=== PATIENT | female | born 1995 | race Caucasian/White ===

== ENCOUNTER 2020-04-07 | Outpatient (REF) | payer OTHER, BC, SELFPAY ==
[2020-04-09 12:21] LABS: BV Int Neg Control Negative (Negative); BV Int Pos Control Positive (Positive)
== END 2020-04-07 00:01 | disposition home or self-care (01) ==
LOC: HO.LNP
PROVIDERS: Visit Provider Hospitalist
DX: N89.8 Other specified noninflammatory disorders of vagina (principal)
CPT/HCPCS: 87480; 87510; 87660

== ENCOUNTER 2020-04-07 12:52 | Outpatient (REF) | payer OTHER, BC, SELFPAY ==
[2020-04-08 04:02] LABS: CT PCR NOT DETECTED (Not Detect.); NG PCR NOT DETECTED (Not Detect.)
[2020-04-08 20:25] LABS: Syphilis Screen Nonreactive (Nonreactive)
[2020-04-11 08:37] LABS: HBS Num1 4.81 mIU/mL (0-7.99); HBc Num1 0.14 S/CO (0.00-0.79); HBsAGNum1 0.19 S/CO (0.00-0.99); HIV AB/AG Nonreactive (Nonreactive); Hepatitis B Core Antibody Nonreactive (Nonreactive); Hepatitis B Surface Antigen Negative (Negative); ~Hepatitis B Surface Antibody NONREACTIVE (Nonreactive)
[2020-04-11 09:52] LABS: ~HepC Num1 0.11 S/CO (0.00-0.79); ~Hepatitis C Antibody Nonreactive (Nonreactive)
[2020-04-13 05:44] LABS: Hepatitis A Antibody IgM 0.18 Index (0-0.79); ~Hepatitis A Antibody IgM Nonreactive (Nonreactive)
== END 2020-04-07 12:53 | disposition home or self-care (01) ==
LOC: HO.HMGCLDS 12:52
PROVIDERS: PCP Nurse Practitioner Family; Visit Provider Hospitalist
DX: Z11.3 Encounter for screening for infections with a predominantly sexual mode of transmission (principal); Z11.4 Encounter for screening for human immunodeficiency virus [HIV]; Z01.84 Encounter for antibody response examination; N89.8 Other specified noninflammatory disorders of vagina
CPT/HCPCS: 86704; 86706; 86709; 86780; 86803; 87255; 87340; 87389; 87491; 87591

== ENCOUNTER 2020-04-08 15:19 | Outpatient (REF) | payer OTHER, BC, SELFPAY | END 2020-04-08 15:20 | disposition home or self-care (01) | LOC: HO.LNP 15:19 | PROVIDERS: Visit Provider Hospitalist | DX: G47.33 Obstructive sleep apnea (adult) (pediatric) (principal) ==

== ENCOUNTER → 2020-04-25 15:38 | Outpatient (BNVA) | payer OTHER, BC, SELFPAY | PROVIDERS: Visit Provider Advanced Practice Midwife | DX: Z76.89 Persons encountering health services in other specified circumstances (principal) ==

== ENCOUNTER 2020-04-25 18:07 | Outpatient (REF) | payer OTHER, BC, SELFPAY ==
[2020-04-26 11:27] LABS: BV Int Neg Control Negative (Negative); BV Int Pos Control Positive (Positive)
== END 2020-04-25 18:08 | disposition home or self-care (01) ==
LOC: HO.LNP 18:07
PROVIDERS: Visit Provider Advanced Practice Midwife
DX: N89.8 Other specified noninflammatory disorders of vagina (principal)
CPT/HCPCS: 87480; 87510; 87660

== ENCOUNTER 2020-06-16 10:28 | Outpatient (REF) | payer OTHER, SELFPAY ==
[2020-06-16 11:17] LABS: MANUAL DIFF FLAG NO
[2020-06-16 11:22] LABS: Basophils Percent Auto 0.5 % (0-2); Eosinophils Absolute Auto 0.1 X10*3/uL (0.0-0.4); Eosinophils Percent Auto 1.2 % (0-4); Hematocrit 46.2 % (37-47); Hemoglobin 15.8 g/dl (12.0-16.0); Imm Gran Abs Auto 0.03 X10*3/uL (0.00-0.03); Imm Gran Pct Auto 0.4 % (0.0-0.4); Lymphocytes Absolute Auto 1.7 X10*3/uL (1.2-4.9); Lymphocytes Percent Auto 21.2 % (20-40); Mean Corpuscular HGB Conc 34.2 g/dl (31.0-35.0); Mean Corpuscular Volume 99.4 fL (80-98); Mean Platelet Volume 10.8 fL (9.4-12.3); Monocytes Absolute Auto 0.6 X10*3/uL (0.1-1.2); Neutrophils Absolute Auto 5.7 X10*3/uL (2.0-8.3); Neutrophils Percent Auto 69.7 % (45-73); Platelet Count 297 X10*3/uL (160-400); Red Blood Count 4.65 X10*6/uL (4.20-5.50); Red Cell Distribution Width 11.9 % (11.0-16.0); White Blood Count 8.2 X10*3/uL (4.8-10.8)
[2020-06-16 11:46] LABS: Alanine Aminotransferase 29 U/L (0-31); Albumin Level 4.8 g/dL (3.5-5.0); Alkaline Phosphatase 73 U/L (39-117); Anion Gap 12 (12-20); Aspartate Amino Transferase 24 U/L (5-31); Bilirubin Total 0.5 mg/dL (0.0-1.0); Blood Urea Nitrogen 12 mg/dL (9-16); Calcium 9.3 mg/dL (8.4-10.2); Carbon Dioxide 31 mmol/L (22-29); Chloride 106 mmol/L (96-108); Cholesterol 165 mg/dL; Estimated Glomerular Filt Rate > 60; Glucose Fasting 94 mg/dL (60-99); HDL Cholesterol 65 mg/dL; LDL Cholesterol Calculated 83 mg/dl; Potassium 4.5 mmol/l (3.3-5.1); Sodium 144 mmol/L (135-145); Total Protein 7.9 g/dL (6.5-8.0); Triglycerides 89 mg/dL
[2020-06-16 12:07] LABS: TSH reflex Free T4 0.75 mIU/mL (0.32-4.0)
== END 2020-06-16 10:29 | disposition home or self-care (01) ==
LOC: HO.HMGCLDS 10:28
PROVIDERS: PCP Nurse Practitioner Family; Visit Provider Nurse Practitioner Family
DX: Z00.00 Encounter for general adult medical examination without abnormal findings (principal)
CPT/HCPCS: 36415; 80053; 80061; 84443; 85025

== ENCOUNTER → 2020-06-29 14:25 | Outpatient (BNVA) | payer OTHER, BC, SELFPAY | PROVIDERS: PCP Nurse Practitioner Family; Visit Provider Physician Assistant | DX: Z76.89 Persons encountering health services in other specified circumstances (principal) ==

== ENCOUNTER 2020-07-05 11:03 | Outpatient (REF) | payer OTHER, BC, SELFPAY ==
--- NOTE | 2020-07-05 11:07 | US_ITS ---
EXAMINATION: US ABDOMEN COMPLETE CLINICAL INFORMATION: Bilious vomiting. COMPARISON: None TECHNIQUE: Real-time imaging of the abdominal viscera. FINDINGS: PANCREAS: Normal. ABDOMINAL AORTA: The proximal, mid, and distal segments are normal in caliber. INFERIOR VENA CAVA: Visualized portions are normal. LIVER: The liver is normal in size. The liver contour is normal. Liver echotexture is slightly increased probably representing fatty infiltration. No focal hepatic lesion. There is no intrahepatic biliary duct dilatation seen. GALLBLADDER: Normal. The gallbladder is physiologically distended without evidence of stones, sludge, polyps, wall thickening or pericholecystic fluid. COMMON BILE DUCT: Normal in caliber measuring 0.3 cm in diameter. RIGHT KIDNEY: Normal. No hydronephrosis. No renal calculi or focal parenchymal lesions. The kidney measures 9.9 cm in maximum dimension. LEFT KIDNEY: Normal. No hydronephrosis. No renal calculi or focal parenchymal lesions. The kidney measures 10.1 cm in maximum dimension. SPLEEN: Normal. The spleen measures 11.1 cm in maximum dimension. FREE FLUID: None. US/US abdomen complete IMPRESSION: Slightly echogenic liver probably presenting fatty infiltration otherwise unremarkable exam.
== END 2020-07-05 11:04 | disposition home or self-care (01) ==
LOC: HO.US 11:03
PROVIDERS: PCP Nurse Practitioner Family; Visit Provider Physician Assistant
DX: R11.14 Bilious vomiting (principal)
CPT/HCPCS: 76700

== ENCOUNTER 2020-07-07 11:11 | Outpatient (REF) | payer OTHER, BC, SELFPAY ==
[2020-07-07 17:44] LABS: Glucose Urine UA NEG (NEG); Leukocyte Esterase Urine NEG (NEG); Nitrite Urine POS (NEG); PH 6.5 (5.0-8.0); Specific Gravity - Urine 1.025 (1.005-1.025); Urine Blood NEG (NEG); Urine Ketones 15 MG/DL (NEG); Urine Protein NEG (NEG-TRACE)
[2020-07-07 17:46] LABS: Appearance Urine CLEAR; Color Urine YELLOW
[2020-07-07 18:36] LABS: Bacteria Urine TRACE /LPF; RBC Urine 0-2 /HPF (0); Squamous Epithelial Cell Urine 2+ /LPF; WBC Urine 0 /HPF (0-4)
[2020-07-08 12:53] LABS: C. trachomatis RNA TMA NOT DETECTED (NOT DETECTED); N. gonorrhoeae RNA TMA NOT DETECTED (NOT DETECTED)
[2020-07-08 13:13] LABS: BV Int Neg Control Negative (Negative); BV Int Pos Control Positive (Positive)
== END 2020-07-07 11:12 | disposition home or self-care (01) ==
LOC: HO.LAB 11:11
PROVIDERS: Visit Provider Advanced Practice Midwife
DX: R30.0 Dysuria (principal); Z20.2 Contact with and (suspected) exposure to infections with a predominantly sexual mode of transmission
CPT/HCPCS: 36415; 81001; 87086; 87480; 87491; 87510; 87591; 87660

== ENCOUNTER 2020-08-30 08:54 | Outpatient (REF) | payer OTHER, BC, SELFPAY | END 2020-08-30 08:55 | disposition home or self-care (01) | LOC: HO.LAB 08:54 | PROVIDERS: Visit Provider Nurse Practitioner Family | DX: R30.0 Dysuria (principal) | CPT/HCPCS: 87086 ==

== ENCOUNTER 2020-09-21 12:41 | Outpatient (REF) | payer OTHER, BC, SELFPAY | END 2020-09-21 12:42 | disposition home or self-care (01) | LOC: HO.HMGCLNP 12:41 | PROVIDERS: Physician Assistant; Visit Provider Advanced Practice Midwife | DX: A04.8 Other specified bacterial intestinal infections (principal) | CPT/HCPCS: 87338 ==

== ENCOUNTER 2020-09-22 08:01 | Outpatient (REF) | payer OTHER, BC, SELFPAY ==
[2020-09-23 09:19] LABS: CT PCR NOT DETECTED (Not Detect.); NG PCR NOT DETECTED (Not Detect.)
[2020-09-23 10:15] LABS: BV Int Neg Control Negative (Negative); BV Int Pos Control Positive (Positive)
== END 2020-09-22 08:02 | disposition home or self-care (01) ==
LOC: HO.LAB 08:01
PROVIDERS: PCP Nurse Practitioner Family; Visit Provider Obstetrics & Gynecology
DX: N73.0 Acute parametritis and pelvic cellulitis (principal); R31.29 Other microscopic hematuria
CPT/HCPCS: 87086; 87480; 87491; 87510; 87591; 87660; 96372

== ENCOUNTER 2020-09-27 16:02 | Outpatient (REF) | payer OTHER, BC, SELFPAY ==
--- NOTE | ~2020-09-27 | US_ITS ---
EXAMINATION: US PELVIS, COMPLETE CLINICAL INFORMATION: Acute parametritis and pelvic cellulitis; the last menstrual period was on 09/10/2020. COMPARISON: Pelvic ultrasound dated 07/29/2018. TECHNIQUE: Transabdominal and transvaginal imaging was performed. FINDINGS: The uterus is of normal size and echogenicity measuring 5.9 x 2.8 x 4.9 cm. There is an arcuate configuration of the uterus. The uterus is anteverted and anteflexed. A regular homogeneous endometrium is identified measuring 0.5 cm. A Nabothian cyst is seen within the cervix Both ovaries are of normal size and echogenicity. The right ovary measures 3.6 x 2.0 x 1.7 cm for a volume of 6.4 mL. The left ovary measures 3.6 x 2.0 x 3.2 cm for a volume of 12.1 mL. Multiple small physiologic follicles are seen within the ovaries. Within the right ovary, there is a 1.0 x 0.8 x 1.1 cm cyst with septation, versus adjacent follicles. This shows no mural nodularity or associated color Doppler flow. There is mild free fluid in the cul-de-sac and bilateral adnexa regions. No adnexal mass is seen. US/US transvaginal IMPRESSION: 1. A 1.1 cm in maximal diameter right ovarian septated cyst versus adjacent follicles is noted. 2. A Nabothian cyst is seen within the cervix. 3. There is a small amount free fluid within the cul-de-sac and in the bilateral adnexal regions.
--- NOTE | ~2020-09-27 | US_ITS ---
EXAMINATION: US PELVIS, COMPLETE CLINICAL INFORMATION: Acute parametritis and pelvic cellulitis; the last menstrual period was on 09/10/2020. COMPARISON: Pelvic ultrasound dated 07/29/2018. TECHNIQUE: Transabdominal and transvaginal imaging was performed. FINDINGS: The uterus is of normal size and echogenicity measuring 5.9 x 2.8 x 4.9 cm. There is an arcuate configuration of the uterus. The uterus is anteverted and anteflexed. A regular homogeneous endometrium is identified measuring 0.5 cm. A Nabothian cyst is seen within the cervix Both ovaries are of normal size and echogenicity. The right ovary measures 3.6 x 2.0 x 1.7 cm for a volume of 6.4 mL. The left ovary measures 3.6 x 2.0 x 3.2 cm for a volume of 12.1 mL. Multiple small physiologic follicles are seen within the ovaries. Within the right ovary, there is a 1.0 x 0.8 x 1.1 cm cyst with septation, versus adjacent follicles. This shows no mural nodularity or associated color Doppler flow. There is mild free fluid in the cul-de-sac and bilateral adnexa regions. No adnexal mass is seen. US/US pelvic complete IMPRESSION: 1. A 1.1 cm in maximal diameter right ovarian septated cyst versus adjacent follicles is noted. 2. A Nabothian cyst is seen within the cervix. 3. There is a small amount free fluid within the cul-de-sac and in the bilateral adnexal regions.
== END 2020-09-27 16:03 | disposition home or self-care (01) ==
LOC: HO.US 16:02
PROVIDERS: Visit Provider Obstetrics & Gynecology
DX: N73.0 Acute parametritis and pelvic cellulitis (principal)
CPT/HCPCS: 76830; 76856

== ENCOUNTER 2020-09-29 08:02 | Outpatient (REF) | payer OTHER, BC, SELFPAY ==
[2020-09-30 09:43] LABS: CT PCR NOT DETECTED (Not Detect.); NG PCR NOT DETECTED (Not Detect.)
[2020-10-06 11:02] LABS: HPV 16 RNA NOT DETECTED (NOT DETECTED); HPV mRNA E6/E7 rflx Detected (Not Detected)
== END 2020-09-29 08:03 | disposition home or self-care (01) ==
LOC: HO.LAB 08:02
PROVIDERS: PCP Nurse Practitioner Family; Visit Provider Obstetrics & Gynecology
DX: Z01.411 Encounter for gynecological examination (general) (routine) with abnormal findings (principal); Z11.51 Encounter for screening for human papillomavirus (HPV); R31.29 Other microscopic hematuria; N83.201 Unspecified ovarian cyst, right side
CPT/HCPCS: 87491; 87591; 87624; 87625; 88141; 88142

== ENCOUNTER → 2020-10-25 10:10 | Outpatient (BNVA) | payer OTHER, BC, SELFPAY | PROVIDERS: PCP Nurse Practitioner Family; Visit Provider Internal Medicine Gastroenterology ==

== ENCOUNTER 2020-10-27 15:47 | Outpatient (REF) | payer OTHER, BC, SELFPAY ==
[2020-10-27 16:49] LABS: Glucose Urine UA NEG (NEG); Leukocyte Esterase Urine NEG (NEG); Nitrite Urine NEG (NEG); Specific Gravity - Urine 1.025 (1.005-1.025); Urine Blood NEG (NEG); Urine Ketones NEG (NEG); Urine Protein NEG (NEG-TRACE)
[2020-10-27 16:54] LABS: Appearance Urine CLEAR; Color Urine YELLOW
[2020-10-27 17:28] LABS: Ferritin 77 ng/mL (10-122); TSH reflex Free T4 0.85 uIU/mL (0.32-4.0); Vitamin D 25-OH Total 31.9 ng/mL (>30)
[2020-10-27 17:40] LABS: Folate 10.4 ng/mL (> or = 4.0); Vitamin B12 374 pg/mL (200-900)
[2020-10-27 17:49] LABS: Erythrocyte Sedimentation Rate 3 MM/HR (0-20)
[2020-10-28 08:49] LABS: HBS Num1 3.73 mIU/mL (0-7.99); HBc Num1 0.09 S/CO (0.00-0.79); Hepatitis B Core Antibody Nonreactive (Nonreactive); ~Hepatitis B Surface Antibody NONREACTIVE (Nonreactive)
[2020-10-28 09:13] LABS: HBsAGNum1 0.22 S/CO (0.00-0.99); Hepatitis A Antibody IgM 0.14 Index (0-0.79); Hepatitis B Surface Antigen Negative (Negative); ~HepC Num1 0.09 S/CO (0.00-0.79); ~Hepatitis A Antibody IgM Nonreactive (Nonreactive); ~Hepatitis C Antibody Nonreactive (Nonreactive)
[2020-10-28 10:10] LABS: CT PCR NOT DETECTED (Not Detect.); NG PCR NOT DETECTED (Not Detect.)
[2020-10-28 11:57] LABS: IgA 206 mg/dL (47-310); IgG 1109 mg/dL (600-1640); IgM 68 mg/dL (50-300)
[2020-10-28 14:21] LABS: Transglutaminase Ab IgG 2 U/mL; Transglutaminase IgA 1 U/mL
[2020-10-28 23:52] LABS: Gliadin Deamidated IgA Ab 5 Units; Gliadin Deamidated IgG Ab 4 Units
[2020-10-29 05:36] LABS: CA-125 7 U/mL (<35)
[2020-10-30 15:52] LABS: Zinc 77 mcg/dL (60-130)
[2020-11-01 06:27] LABS: Vitamin B6 19.3 ng/mL (2.1-21.7)
[2020-11-01 11:12] LABS: Vitamin C 1.1 mg/dL (0.3-2.7)
[2020-11-01 12:51] LABS: Vitamin A 51 mcg/dL (38-98)
[2020-11-01 18:32] LABS: Alpha-Tocopherol 9.5 mg/L (5.7-19.9); Beta-Gamma Tocopherol 1.6 mg/L (<=4.3)
[2020-11-01 20:31] LABS: Histamine Plasma 6.7 ng/mL (< OR = 1.8)
[2020-11-02 06:36] LABS: Metanephrine, Free 70 pg/mL (<=57); Normetanephrines, Free 134 pg/mL (<=148); Total Metanephrine, Free 204 pg/mL (<=205)
[2020-11-02 09:21] LABS: Nicotinamide <20 ng/mL; Vit B3 - Nicotinic Acid <20 ng/mL
[2020-11-02 17:57] LABS: Vitamin K1 295 pg/mL (130-1500)
[2020-11-03 09:11] LABS: Vitamin B5 (Pantothenic Acid) 62 ng/mL (<275)
== END 2020-10-27 15:48 | disposition home or self-care (01) ==
LOC: HO.LAB 15:47
PROVIDERS: Advanced Practice Midwife; Absent Provider Obstetrics & Gynecology; PCP Nurse Practitioner Family; Visit Provider Internal Medicine Gastroenterology
DX: N83.299 Other ovarian cyst, unspecified side (principal); G89.29 Other chronic pain; R10.33 Periumbilical pain; N39.0 Urinary tract infection, site not specified; R11.14 Bilious vomiting; R30.0 Dysuria; Z20.2 Contact with and (suspected) exposure to infections with a predominantly sexual mode of transmission
CPT/HCPCS: 36415; 81003; 82180; 82306; 82607; 82728; 82746; 82784; 82785; 83088; 83516; 83520; 83835; 84207; 84443; 84446; 84590; 84591; 84597; 84630; 85652; 86003; 86304; 86704; 86706; 86709; 86803; 87086; 87340; 87491; 87591

== ENCOUNTER 2020-11-14 10:14 | Day surgery (SDC) | payer BC, OTHER, SELFPAY ==
--- NOTE | 2020-11-09 10:53 | HO.ANESPROP2 ---
HPI - Anesthesia Eval Consult details Narrative: 24yo F for Upper Endoscopy PMFSH Active Problems Active Problems: All Active Problems (Updated 10/25/20 @ 10:48 by Toni Carr MD) Complex ovarian cyst (Acute) Well woman exam (Acute) Microscopic hematuria (Acute) PID (acute pelvic inflammatory disease) (Acute) UTI (urinary tract infection) (Acute) control counseling (Acute) Dysuria (Acute) Potential exposure to STD (Acute) Physical exam (Acute) Vomiting bile (Acute) Chronic back pain (Acute) Vaginal irritation (Acute) Bacterial vaginosis (Acute) Vaginal discharge (Acute) Past Medical History Medical History Chronic back pain Concern about STD in female without diagnosis Family History Family History Father History of back surgery Mother Depression History of back surgery Brother No problems noted. Brother No problems noted. Sister No problems noted. Surgical History Surgical History No pertinent past surgical history Social History Social History Alcohol intake: current Alcohol intake frequency: a few times a week Smoking Status: Current some day smoker Gender identity: female Meds Allergies Allergy/AdvReac Type Severity Reaction Status Date / Time No Known Allergies Allergy Verified 11/09/20 08:06 Exam Exam Date and Time: November 09, 2020 1053 Assessment and Plan Assessment Anesthesia Assessment: Chart Reviewed
[2020-11-14 10:22] VITALS: BP 111/80; PULSE 60; RESP 14; TEMP 36.4; O2SAT 97; BMI 26.6
[2020-11-14 10:25] LABS: UPreg QC Valid YES; Urine Pregnancy NEGATIVE (NEGATIVE)
--- NOTE | 2020-11-14 10:33 | P.HPSUR_ITS ---
Pre-Procedural Eval Section B Chief Complaint: Vomiting Bile Relevant Family History (Specify if Yes): No Relevant Social History: None Present Medications: see Short Stay Collaborative assessment Medical History: Significant History (Chronic back pain, ovarian cyst) History of Previous Operations: No relevant previous surgery Allergies: Allergies Allergy/AdvReac Type Severity Reaction Status Date / Time No Known Allergies Allergy Verified 11/09/20 08:06 Review of Systems Sugical H&P ROS: Negative: Constitution, Cardiovascular, Respiratory, Neurological, Psychiatric, Hem-Onc, Allergic/Immunologic, Gastrointestinal, Genitourinary, Musculoskeletal, Integumentary, Endocrine and E yes/Ears/Nose/Throat Exam Surgical H&P Exam: Normal: HEENT, Normal: Heart, Normal: Lungs, Normal: Extremities, Normal: Abdomen and Normal: Neurological and Significant Findings: Skin (dermographism) Plan Diagnosis/Plan: Unchanged I have reviewed the history and physical and performed a pertinent physical examination on my patient. No changes have occurred unless specified.
--- NOTE | 2020-11-14 10:43 | P.BOP_ITS ---
Brief Operative Note Date of Service: 11/14/20 Pre-op diagnosis: elevated histamine, nausea and vomiting Post-op diagnosis: same Procedure: see op note Surgeon: Toni Carr MD Anesthesia: MAC Was an Network Security Consultant used for this Procedure?: No Estimated blood loss (mL): 0 Condition: stable Disposition: PACU
--- NOTE | 2020-11-14 10:43 | W.PM.OPN ---
Operative Note Operative Note Date of Service: 11/14/20 Narrative: Procedure Description: EGD FLEXIBLE TRANSORAL UPPER GASTROINTESTINAL ENDOSCOPY UPPER ENDOSCOPY Consent: Indications for the procedure and potential complications of bleeding, perforation, reaction to medications and missed diagnosis were discussed with the patient and informed consent was obtained. Instrument: Olympus GIF H 190 J mid size upper endoscope Monitoring: Vital signs and clinical assessment, continuous EKG monitoring, Pulse oximetry, Carbon Dioxide monitoring and blood pressure monitoring were done throughout the procedure. Procedure: The patient was placed in the left lateral decubitis position and pre-procedure medications were administered and a bite block was placed. The endoscope was inserted into the mouth and advanced under direct vision to the third part of duodenum. A careful inspection was made as the upper endoscope was withdrawn including a retroflexed examination of the proximal stomach; Findings and interventions are described below. Findings: Larynx:normal Esophagus: GE junction at 37 cm, diaphragm hiatus at 37 cm, mild esophagitis noted at GEJ, bx taken from here and distal esophagus in separate jars. Stomach: Normal. Biopsies were obtained. Grade 2 flap valve on retroflexed examination of the cardia. Duodenum: Normal bulb and descending duodenum, bx taken Intervention: Biopsies as noted above Impression/Findings: esophagitis PLAN: trial of antihistamine therapy incl famotidine given hx of elevated histamine and see if any improvement in sx
[2020-11-14 10:58] VITALS: BP 108/67; PULSE 64; RESP 16; TEMP 36.4; O2SAT 97
[2020-11-14 11:12] VITALS: BP 107/63; PULSE 69; RESP 16; TEMP 36.6; O2SAT 98
--- NOTE | 2020-11-14 12:44 | HO.POSTANES ---
Post Anesthesia Evaluation Post Anesthesia Evaluation Vital Signs: Vital Signs Temp Pulse Resp BP Pulse Ox 11/14/20 11:12 97.8 F 69 16 107/63 98 11/14/20 10:58 97.5 F 64 16 108/67 97 11/14/20 10:22 97.6 F 60 14 111/80 97 Anesthesia: Monitored Mental Status: Awake Pain Control: Satisfactory Nausea/Vomiting: None Hydration: Adequate Anesthesia-Related Issues: No Anes. Related Issues
[2020-11-18 23:56] LABS: Coproporphyrin I, 24Hr 29.8 mcg/24 h (7.1-48.7); Coproporphyrin III, 24Hr 75.7 mcg/24 h (11.0-148.5); Heptacarboxylporphyrin, 24U 1.2 mcg/24 h (< OR = 3.3); Pentacarboxylporphrin, 24U 1.1 mcg/24 h (< OR = 4.6); Total Volume, Porphyrins 24Hr 1325 mL; Uroporphyrin I, 24 Hr 11.6 mcg/24 h (4.1-22.4); Uroporphyrin III, 24Hr 2.6 mcg/24 h (0.7-7.4)
[2020-11-19 08:21] LABS: Hydroindolacetic Acid,5- 0.5 mg/24 h (<=6.0)
[2020-11-20 23:56] LABS: Metanephrine, Free 24U 196 mcg/24 h (25-222); Normetanephrine, Free 24U 317 mcg/24 h (40-412); Total Metanephrine, Free 24U 513 mcg/24 h (94-604); Total Volume 24U 1325 mL
[2020-11-21 16:27] LABS: Cortisol Free, 24 Hr Urine 23.1 mcg/24 h (4.0-50.0); Creatinine, 24 Hr Urine 1.91 g/24 h (0.50-2.15); Total Volume 1325 mL; Total Volume, 24 Hr Urine 1325 mL
[2020-12-05 09:22] LABS: Creatinine 24Hr Urine 2067 mg/24 h (603 - 1783); N-Methylhistamine, 24Hr Urine 154 mcg/g Cr (30-200); Total Volume 1325 mL
== END 2020-11-14 11:56 | disposition home or self-care (01) ==
PROVIDERS: Nurse Practitioner; PCP Nurse Practitioner Family; Visit Provider Internal Medicine Gastroenterology
PROC: 0DJ08ZZ Inspection of Upper Intestinal Tract, Via Natural or Artificial Opening Endoscopic (ICD-10-PCS; CPT 43235; principal; 2020-11-14 11:00)
DX: R11.14 Bilious vomiting (principal); K20.80 Other esophagitis without bleeding; K44.9 Diaphragmatic hernia without obstruction or gangrene; Z79.899 Other long term (current) drug therapy
CPT/HCPCS: 43239; 81025; 81050; 82530; 82542; 83497; 83835; 84120; 88305; 88341; 88342

== ENCOUNTER 2020-11-24 07:27 | Outpatient (REF) | payer OTHER, BC, SELFPAY ==
[2020-11-24 07:50] LABS: MANUAL DIFF FLAG NO
[2020-11-24 07:53] LABS: Basophils Percent Auto 0.6 % (0-2); Eosinophils Absolute Auto 0.2 X10*3/uL (0.0-0.4); Eosinophils Percent Auto 4.4 % (0-4); Hematocrit 40.8 % (37-47); Hemoglobin 14.3 g/dl (12.0-16.0); Imm Gran Abs Auto 0.01 X10*3/uL (0.00-0.03); Imm Gran Pct Auto 0.2 % (0.0-0.4); Lymphocytes Absolute Auto 1.8 X10*3/uL (1.2-4.9); Mean Corpuscular Hemoglobin 33.7 pg (27.0-33.0); Mean Corpuscular Volume 96.2 fL (80-98); Monocytes Absolute Auto 0.7 X10*3/uL (0.1-1.2); Monocytes Percent Auto 13.3 % (2-11); Neutrophils Absolute Auto 2.5 X10*3/uL (2.0-8.3); Neutrophils Percent Auto 47.5 % (45-73); Platelet Count 205 X10*3/uL (160-400); Red Blood Count 4.24 X10*6/uL (4.20-5.50); Red Cell Distribution Width 11.7 % (11.0-16.0); White Blood Count 5.2 X10*3/uL (4.8-10.8)
[2020-11-28 11:17] LABS: Metanephrine, Free 46 pg/mL (<=57); Normetanephrines, Free 86 pg/mL (<=148); Total Metanephrine, Free 132 pg/mL (<=205)
[2020-11-29 23:36] LABS: Histamine Plasma 4.9 ng/mL (< OR = 1.8)
== END 2020-11-24 07:28 | disposition home or self-care (01) ==
LOC: HO.LAB 07:27
PROVIDERS: PCP Nurse Practitioner Family; Visit Provider Internal Medicine Gastroenterology
DX: R11.14 Bilious vomiting (principal); R00.2 Palpitations
CPT/HCPCS: 36415; 83088; 83835; 85025; 86003

== ENCOUNTER → 2020-11-29 11:20 | Outpatient (BNVA) | payer OTHER, BC, SELFPAY | PROVIDERS: PCP Nurse Practitioner Family; Referring Provider Nurse Practitioner Family; Visit Provider Internal Medicine Gastroenterology ==

== ENCOUNTER 2020-12-15 15:33 | Outpatient (REF) | payer OTHER, BC, SELFPAY ==
--- NOTE | ~2020-12-15 | US_ITS ---
EXAMINATION: ULTRASOUND PELVIS COMPLETE CLINICAL INFORMATION: Ovarian cyst COMPARISON: Ultrasound pelvis 09/27/2020 TECHNIQUE: Transabdominal and transvaginal imaging of pelvis is performed. FINDINGS: The uterus is anteverted and anteflexed measuring 6.1 cm in length, 2.7 cm in AP and 4.6 cm in transverse dimension. Endometrial thickness is 0.25 cm. The uterus is homogeneous in echotexture. No focal lesion seen. The right ovary measures 3.6 x 1.6 x 2.0 cm and volume 5.9 mL. It appears unremarkable. Previously it measures 3.4 x 2.2 x 2.8 cm. Left ovary measures 2.8 x 1.9 x 3.2 cm and volume 8.9 mL. It appears unremarkable. Previously measured 3.1 x 2.1 x 2.6 cm. There is no free fluid in the cul-de-sac. US/US transvaginal IMPRESSION: Unremarkable uterus and ovaries.
--- NOTE | ~2020-12-15 | US_ITS ---
EXAMINATION: ULTRASOUND PELVIS COMPLETE CLINICAL INFORMATION: Ovarian cyst COMPARISON: Ultrasound pelvis 09/27/2020 TECHNIQUE: Transabdominal and transvaginal imaging of pelvis is performed. FINDINGS: The uterus is anteverted and anteflexed measuring 6.1 cm in length, 2.7 cm in AP and 4.6 cm in transverse dimension. Endometrial thickness is 0.25 cm. The uterus is homogeneous in echotexture. No focal lesion seen. The right ovary measures 3.6 x 1.6 x 2.0 cm and volume 5.9 mL. It appears unremarkable. Previously it measures 3.4 x 2.2 x 2.8 cm. Left ovary measures 2.8 x 1.9 x 3.2 cm and volume 8.9 mL. It appears unremarkable. Previously measured 3.1 x 2.1 x 2.6 cm. There is no free fluid in the cul-de-sac. US/US pelvic complete IMPRESSION: Unremarkable uterus and ovaries.
== END 2020-12-15 15:34 | disposition home or self-care (01) ==
LOC: HO.HMGCX 15:33
PROVIDERS: PCP Nurse Practitioner Family; Visit Provider Obstetrics & Gynecology
DX: N83.299 Other ovarian cyst, unspecified side (principal)
CPT/HCPCS: 76830; 76856

== ENCOUNTER 2021-01-18 09:20 | Outpatient (REF) | payer OTHER, BC, SELFPAY ==
[2021-01-19 02:39] LABS: CT PCR NOT DETECTED (Not Detect.); NG PCR NOT DETECTED (Not Detect.)
[2021-01-19 13:00] LABS: BV Int Neg Control Negative (Negative); BV Int Pos Control Positive (Positive)
== END 2021-01-18 09:21 | disposition home or self-care (01) ==
LOC: HO.LAB 09:20
PROVIDERS: PCP Nurse Practitioner Family; Visit Provider Obstetrics & Gynecology
DX: Z11.3 Encounter for screening for infections with a predominantly sexual mode of transmission (principal); N76.0 Acute vaginitis; B96.89 Other specified bacterial agents as the cause of diseases classified elsewhere; N83.299 Other ovarian cyst, unspecified side
CPT/HCPCS: 87480; 87491; 87510; 87591; 87660

== ENCOUNTER 2021-02-07 10:40 | Outpatient (REF) | payer OTHER, BC, SELFPAY ==
[2021-02-08 08:16] LABS: HBsAGNum1 0.21 S/CO (0.00-0.99); HIV AB/AG Nonreactive (Nonreactive); HIV Num 1 0.08 S/CO (0.00-0.99); Hepatitis B Surface Antigen Negative (Negative); ~HepC Num1 0.17 S/CO (0.00-0.79); ~Hepatitis C Antibody Nonreactive (Nonreactive)
[2021-02-08 09:15] LABS: Syphilis Screen Nonreactive (Nonreactive)
== END 2021-02-07 10:41 | disposition home or self-care (01) ==
LOC: HO.HMGCLDS 10:40
PROVIDERS: PCP Nurse Practitioner Family; Visit Provider Obstetrics & Gynecology
DX: Z01.84 Encounter for antibody response examination (principal); Z11.4 Encounter for screening for human immunodeficiency virus [HIV]; Z11.3 Encounter for screening for infections with a predominantly sexual mode of transmission; Z11.59 Encounter for screening for other viral diseases
CPT/HCPCS: 36415; 86780; 86803; 87340; 87389

== ENCOUNTER 2021-02-17 11:26 | Outpatient (REF) | payer OTHER, BC, SELFPAY ==
[2021-02-17 14:00] LABS: CT PCR NOT DETECTED (Not Detect.); NG PCR NOT DETECTED (Not Detect.)
[2021-02-19 11:58] LABS: BV Int Neg Control Negative (Negative); BV Int Pos Control Positive (Positive)
== END 2021-02-17 11:27 | disposition home or self-care (01) ==
LOC: HO.LNP 11:26
PROVIDERS: Visit Provider Hospitalist
DX: R30.0 Dysuria (principal); Z11.3 Encounter for screening for infections with a predominantly sexual mode of transmission
CPT/HCPCS: 87086; 87480; 87491; 87510; 87591; 87660

== ENCOUNTER → 2021-03-31 07:54 | Outpatient (REF) | payer OTHER, BC, SELFPAY ==
--- NOTE | ~2021-03-31 | NM_ITS ---
EXAMINATION: RADIONUCLIDE SOLID FOOD GASTRIC EMPTYING 4-HOUR STUDY CLINICAL INFORMATION: Early satiety. COMPARISON: The previous study dated 07/16/2018 is available for comparison. TECHNIQUE: A standard meal consisting of 4 oz of Egg Beaters brand equivalent tagged with 1.0 mCi Tc-99m Sulfur Colloid, 8 oz water and 2 slices of toast with jelly was administered orally to the patient. Images were obtained using a dual head gamma camera in the anterior and posterior projections over of the stomach immediately post ingestion and at hourly intervals up to 4 hours post ingestion. The anterior and posterior counts at each time interval were averaged using the geometric mean and expressed as percentage of the immediate post ingestion counts. FINDINGS: There is good visualization of activity in the stomach immediately post ingestion. As the study progresses, there is good clearance of activity from the stomach and visualization of progressively increasing small bowel activity. By the end of the study, there is almost no retention noted in the stomach. Retention in the stomach at each time interval was: 1 hour 51% (normal 37%-90%) 2 hours 23% (normal 30%-60%) 3 hours 15% 4 hours 9% (normal 0%-10%) Compared to the previous study dated 07/16/2018, gastric retention at all time intervals is slightly lower than on the previous study which was mildly abnormal showing 16% retention at 4 hours. NM/NM gastric emptying study IMPRESSION: Normal 4-hour solid food gastric emptying study.
== END ==
LOC: HO.NUCMED 07:54
PROVIDERS: PCP Nurse Practitioner Family; Visit Provider Internal Medicine Gastroenterology
DX: R68.81 Early satiety (principal)
CPT/HCPCS: 78264; A9541

== ENCOUNTER 2021-05-05 08:01 | Outpatient (REF) | payer OTHER, BC, SELFPAY ==
[2021-05-05 11:35] LABS: MANUAL DIFF FLAG NO
[2021-05-05 11:48] LABS: Basophils Percent Auto 0.5 % (0-2); Eosinophils Absolute Auto 0.2 X10*3/uL (0.0-0.4); Hematocrit 43.1 % (37.0-47.0); Hemoglobin 14.9 g/dl (12.0-16.0); Imm Gran Abs Auto 0.02 X10*3/uL (0.00-0.03); Imm Gran Pct Auto 0.3 % (0.0-0.4); Lymphocytes Absolute Auto 1.5 X10*3/uL (1.2-4.9); Lymphocytes Percent Auto 24.9 % (20-40); Mean Corpuscular HGB Conc 34.6 g/dl (31.0-35.0); Mean Corpuscular Hemoglobin 34.1 pg (27.0-33.0); Mean Corpuscular Volume 98.6 fL (80.0-98.0); Mean Platelet Volume 11.8 fL (9.4-12.3); Monocytes Absolute Auto 0.5 X10*3/uL (0.1-1.2); Monocytes Percent Auto 8.2 % (2-11); Neutrophils Absolute Auto 3.9 x10*3/uL (2.0-8.3); Neutrophils Percent Auto 63.1 % (45-73); Platelet Count 217 X10*3/uL (160-400); Red Blood Count 4.37 X10*6/uL (4.20-5.50); Red Cell Distribution Width 12.2 % (11.0-16.0); White Blood Count 6.1 X10*3/uL (4.8-10.8)
[2021-05-05 11:49] LABS: INTERNATIONAL NORM RATIO 0.9 (0.9-1.1); Prothrombin Time 10.1 SEC (9.9-13.0)
[2021-05-05 11:52] LABS: Partial Thromboplastin Time 36.1 SEC (24.1-38.0)
[2021-05-05 12:10] LABS: Alanine Aminotransferase 17 U/L (0-31); Albumin Level 4.2 g/dL (3.5-5.0); Alkaline Phosphatase 70 U/L (39-117); Anion Gap 10 (12-20); Aspartate Amino Transferase 18 U/L (5-31); Bilirubin Total 0.7 mg/dL (0.0-1.0); Blood Urea Nitrogen 14 mg/dL (9-16); Carbon Dioxide 27 mmol/L (22-29); Chloride 106 mmol/L (96-108); Estimated Glomerular Filt Rate > 60; Glucose Random 91 mg/dL (60-115); Potassium 4.1 mmol/L (3.3-5.1); Sodium 139 mmol/L (135-145); Total Protein 6.9 g/dL (6.5-8.0)
[2021-05-05 12:26] LABS: Erythrocyte Sedimentation Rate 2 MM/HR (0-20)
[2021-05-05 14:34] LABS: CT PCR NOT DETECTED (Not Detect.); NG PCR NOT DETECTED (Not Detect.)
[2021-05-06 13:06] LABS: Lyme Abs Screen <0.90 index
[2021-05-08 17:22] LABS: Anti Nuclear Antibody Screen NEGATIVE (NEGATIVE)
== END 2021-05-05 08:02 | disposition home or self-care (01) ==
LOC: HO.HMGCLDS 08:01
PROVIDERS: PCP Nurse Practitioner Family; Visit Provider Advanced Practice Midwife
DX: Z11.3 Encounter for screening for infections with a predominantly sexual mode of transmission (principal); R23.8 Other skin changes
CPT/HCPCS: 36415; 80053; 85025; 85610; 85652; 85730; 86038; 86039; 86617; 86618; 87491; 87591

== ENCOUNTER 2021-05-08 16:32 | Outpatient (REF) | payer OTHER, BC, SELFPAY ==
[2021-05-12 18:46] LABS: Histamine Plasma 3.2 ng/mL (< OR = 1.8)
== END 2021-05-08 16:33 | disposition home or self-care (01) ==
LOC: HO.LAB 16:32
PROVIDERS: PCP Nurse Practitioner Family; Visit Provider Nurse Practitioner Family
DX: R23.8 Other skin changes (principal)
CPT/HCPCS: 36415; 83088

== ENCOUNTER 2021-06-07 16:35 | Outpatient (REF) | payer OTHER, BC, SELFPAY | END 2021-06-07 16:36 | disposition home or self-care (01) | LOC: HO.LNP 16:35 | PROVIDERS: Visit Provider Physician Assistant Medical | DX: Z20.822 Contact with and (suspected) exposure to COVID-19 (principal); J06.9 Acute upper respiratory infection, unspecified | CPT/HCPCS: 87071; U0003; U0005 ==

== ENCOUNTER 2021-08-03 17:11 | Outpatient (REF) | payer OTHER, BC, SELFPAY ==
[2021-08-03 17:31] LABS: MANUAL DIFF FLAG NO
[2021-08-03 17:49] LABS: Basophils Percent Auto 0.3 % (0-2); Eosinophils Absolute Auto 0.1 X10*3/uL (0.0-0.4); Eosinophils Percent Auto 0.7 % (0-4); Hematocrit 40.6 % (37.0-47.0); Hemoglobin 14.3 g/dl (12.0-16.0); Imm Gran Abs Auto 0.04 X10*3/uL (0.00-0.03); Imm Gran Pct Auto 0.4 % (0.0-0.4); Lymphocytes Absolute Auto 3.1 X10*3/uL (1.2-4.9); Lymphocytes Percent Auto 30.1 % (20-40); Mean Corpuscular HGB Conc 35.2 g/dl (31.0-35.0); Mean Corpuscular Volume 96.7 fL (80.0-98.0); Mean Platelet Volume 10.9 fL (9.4-12.3); Monocytes Absolute Auto 0.8 X10*3/uL (0.1-1.2); Monocytes Percent Auto 8.2 % (2-11); Neutrophils Absolute Auto 6.1 x10*3/uL (2.0-8.3); Neutrophils Percent Auto 60.3 % (45-73); Platelet Count 231 X10*3/uL (160-400); Red Cell Distribution Width 11.9 % (11.0-16.0); White Blood Count 10.1 X10*3/uL (4.8-10.8)
[2021-08-03 18:06] LABS: Appearance Urine CLEAR; Color Urine YELLOW; Glucose Urine UA NEG (NEG); Leukocyte Esterase Urine NEG (NEG); Nitrite Urine NEG (NEG); PH 7.5 (5.0-8.0); Specific Gravity - Urine 1.015 (1.005-1.025); Urine Blood NEG (NEG); Urine Ketones NEG (NEG); Urine Protein NEG (NEG-TRACE)
[2021-08-03 18:17] LABS: Alanine Aminotransferase 14 U/L (0-31); Albumin Level 4.8 g/dL (3.5-5.0); Alkaline Phosphatase 67 U/L (39-117); Anion Gap 11 (12-20); Aspartate Amino Transferase 18 U/L (5-31); Bilirubin Total 0.8 mg/dL (0.0-1.0); Blood Urea Nitrogen 13 mg/dL (9-16); Calcium 10.1 mg/dL (8.4-10.2); Carbon Dioxide 29 mmol/L (22-29); Chloride 105 mmol/L (96-108); Estimated Glomerular Filt Rate > 60; Glucose Fasting 95 mg/dL (60-99); Potassium 3.6 mmol/L (3.3-5.1); Sodium 141 mmol/L (135-145); Total Protein 7.9 g/dL (6.5-8.0)
[2021-08-03 18:38] LABS: TSH reflex Free T4 1.05 uIU/mL (0.32-4.0)
[2021-08-04 08:16] LABS: HIV AB/AG Nonreactive (Nonreactive); HIV Num 1 0.12 S/CO (0.00-0.99)
[2021-08-04 08:40] LABS: Syphilis Screen Nonreactive (Nonreactive)
[2021-08-04 09:15] LABS: CT PCR NOT DETECTED (Not Detect.); NG PCR NOT DETECTED (Not Detect.)
== END 2021-08-03 17:12 | disposition home or self-care (01) ==
LOC: HO.LAB 17:11
PROVIDERS: PCP Nurse Practitioner Family; Visit Provider Nurse Practitioner Family
DX: Z00.00 Encounter for general adult medical examination without abnormal findings (principal); Z11.3 Encounter for screening for infections with a predominantly sexual mode of transmission; N89.8 Other specified noninflammatory disorders of vagina
CPT/HCPCS: 80053; 81003; 84443; 85025; 86780; 87389; 87491; 87591

== ENCOUNTER 2021-08-09 07:37 | Outpatient (REF) | payer OTHER, BC, SELFPAY ==
[2021-08-09 08:13] LABS: Cholesterol 147 mg/dL; HDL Cholesterol 57 mg/dL; LDL Cholesterol Calculated 83 mg/dl; Triglycerides 37 mg/dL
== END 2021-08-09 07:38 | disposition home or self-care (01) ==
LOC: HO.LAB 07:37
PROVIDERS: PCP Nurse Practitioner Family; Visit Provider Nurse Practitioner Family
DX: Z00.00 Encounter for general adult medical examination without abnormal findings (principal)
CPT/HCPCS: 36415; 80061

== ENCOUNTER 2022-07-04 09:12 | Outpatient (REF) | payer OTHER, SELFPAY ==
[2022-07-04 13:03] LABS: Influenza A PCR NEGATIVE (Negative); Influenza B PCR NEGATIVE (Negative); Resp Syncy Virus RNA Qual PCR NEGATIVE (Negative); SARS COV2 PCR INHOUSE POSITIVE (Negative)
== END 2022-07-04 09:13 | disposition home or self-care (01) ==
LOC: HO.LAB 09:12
PROVIDERS: Visit Provider Internal Medicine
DX: Z20.822 Contact with and (suspected) exposure to COVID-19 (principal); R09.89 Other specified symptoms and signs involving the circulatory and respiratory systems
CPT/HCPCS: 0241U

== ENCOUNTER 2022-08-28 13:36 | Emergency (ER) | payer OTHER, SELFPAY ==
[2022-08-28 13:41] VITALS: BP 125/84; PULSE 115; O2SAT 97
[2022-08-28 13:51] VITALS: BP 140/74; PULSE 99; RESP 16; TEMP 36.6; O2SAT 100; BMI 21.6
--- NOTE | 2022-08-28 14:18 | ED.GENADULT ---
HPI - General Adult General Chief complaint: ETOH/Substance Use Stated complaint: etoh Time Seen by Provider: 08/28/22 14:07 Source: patient, family and EMS Mode of arrival: EMS Limitations: no limitations History of Present Illness HPI narrative: 26 yo female with history of anxiety presents to the ER after being found sleeping in her car. Per patient and her mother the patient was sleeping in her car and a bystander found her and they called EMS. Patient reports last night she when out for drinks with her friends and she also had several drinks a continued alcohol today. She also smoked marijuana. She denies any additional substance use. Patient reports she is currently going through a break-up from a partner and this has caused her to have lots of anxiety and depression. No suicidal thoughts. Patient denies any injury or trauma and has no physical complaints Related Data Previous Rx's Medication Instructions Recorded valacyclovir 1 gram tablet 1,000 mg PO Q12H 10 days #20 tabs 09/27/21 ibuprofen 800 mg tablet 800 mg PO Q8H PRN pain 15 days #45 07/04/22 tabs hydroxyzine HCl 25 mg tablet 25 mg PO BEDTIME PRN 07/10/22 anxiety/insomnia 30 days #30 tabs Allergies Allergy/AdvReac Type Severity Reaction Status Date / Time No Known Allergies Allergy Verified 07/04/22 08:51 Review of Systems Review of Systems: Yes all other systems are reviewed and are negative Constitutional: Constitutional: Reports no additional constitutional complaints, Denies body ache(s), Denies chills, Denies fever(s), Denies headache(s) and Denies weakness Eyes: Eyes: Reports no additional eye complaints and Denies change in vision ENT: Reports system reviewed and no additional complaints, except as documented, Denies dizziness, Denies headache(s), Denies nasal congestion, Denies nasal discharge and Denies neck pain Cardiovascular: Cardiovascular: Reports no additional cardiovascular complaints, Denies chest pain, Denies leg edema and Denies dyspnea Respiratory: Respiratory: Reports no additional respiratory complaints, Denies cough and Denies dyspnea Gastrointestinal: Gastrointestinal: Reports no additional gastrointestinal complaints, Denies abdominal pain, Denies diarrhea, Denies nausea and Denies vomiting Genitourinary: Genitourinary: Reports no additional female genitourinary complaints and Denies urinary incontinence Musculoskeletal: Musculoskeletal: Reports no additional musculoskeletal complaints, Denies back pain, Denies arthralgias, Denies joint swelling, Denies neck pain, Denies numbness and Denies tingling Integumentary/Breasts: Skin/Breast: Reports system reviewed and no additional complaints, except as docu and Denies rash Neurologic: Reports system reviewed and no additional complaints, except as documented, Denies dizziness, Denies headache(s), Denies numbness, Denies tingling and Denies weakness PMFSH Past Medical History Attestation statement: The following information was validated with the patient. Source: old records reviewed and nursing notes reviewed Medical History Chronic back pain Concern about STD in female without diagnosis Surgical History H/O esophagogastroduodenoscopy No pertinent past surgical history Family History Family History Father History of back surgery Mother Depression History of back surgery Brother No problems noted. Brother No problems noted. Sister No problems noted. Social History Social History Housing: House Alcohol intake: current Alcohol intake frequency: a few times a week Patient Tobacco Use Status: Never used Tobacco e-Cigarette/Vaping Use: Never Used Advance Directives: Yes Advance Directives Information Provided: Yes Advance Directives on File: No Current occupational status: employed Gender identity: Female Physical Exam ED Vital Signs: Vital Signs - 24 hr 08/28/22 13:51 Temperature 97.9 F Pulse Rate 99 Respiratory Rate 16 Blood Pressure 140/74 H Pulse Oximetry 100 Oxygen Delivery Method Room Air BMI result Body Mass Index 21.6 Const Other: +crying General: alert and anxious Orientation/consciousness: patient oriented x3 Limitations: no limitations Neuro Other: +anxious General: patient oriented x3 and moves all extremities Cognition (Neuro): normal cognition Gait exam (Neuro): Normal gait present Motor exam (neuro): 5/5 motor strength present throughout Sensory Exam: Normal double simultaneous stimulation for sensation Medical Decision Making Medical Decision Making MDM Narrative: 26-year-old female here feeling anxious, tearful states she drank alcohol and smoked marijuana and then fell asleep in her car. Patient denies physical complaints. No injury or trauma. States feeling anxious secondary to recent break-up with boyfriend. No SI/HI. Mom at bedside and concerned patient may have additional substances on board. I offered drug/alcohol testing to the patient. Initially she agreed and then both mom and patient decided they did not want this. Patient A&OX4. Ambulating with steady gait. Tolerating PO. She did meet with CARE team and was provided with outpatient resources. Differential Diagnosis Differential Diagnoses: The differential diagnosis associated with the presentation includes Poly substance use Adjustment disorder Anxiety Consult Healthcare Provider Management of the patient was discussed with: Behavioral Health Provider Patient met with care team [place]-she was provided with outpatient resources. Discharge Plan Discharge Clinical Impression: Adjustment disorder, Anxiety, Alcohol use Patient Disposition: Home, Self-Care Instructions: Anxiety (ED) Additional Instructions: Follow-up with outpatient resources DO no drink alcohol and drive Prescriptions: No Action valacyclovir 1 gram tablet 1,000 mg PO Q12H 10 Days Qty: 20 3RF ibuprofen 800 mg tablet 800 mg PO Q8H PRN (Reason: pain) 15 Days Qty: 45 0RF hydroxyzine HCl 25 mg tablet 25 mg PO BEDTIME PRN (Reason: anxiety/insomnia) 30 Days Qty: 30 1RF Interventions: [place]-Suicide Risk Severity Scale Last Done: 08/28/22 14:58 Discharge Date/Time: 08/28/22 15:30
--- NOTE | 2022-08-28 14:42 | PC.NURSE ---
pts mother at the bedside. pt remains tearful, pt speaking with care team
--- NOTE | 2022-08-28 15:02 | MHC.CARE ---
CARE Team responded to consult request to speak with patient here with anxiety. She was sitting in a wheelchair, mom seated next to her and present for interview, patient was tearful, anxious and labile, difficult to follow in her description of the problem. 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 Mother said this is a much more extreme version of her daughter's anxiety. Patient reported nausea and vomiting every morning and a weight loss of over 30 lbs in the last year, no medical findings to indicate she has a serious issue but she is still worried. She declined offer to stay for evaluation and treatment recommendations, mother felt comfortable without a formal assessment. Both denied any history of suicidal threats, gestures or attempts. Patient agreed therapy might be helpful and information about the new [facility] community programs, CARE Team will contact [facility] to reach out to patient directly to clarify her needs. Patient was encouraged to utilize the EAP services through her employer and general information about that process was given to patient. Per mother, they live close by and will return if any other medical or psychiatric concerns come up.
== END 2022-08-28 15:30 | disposition home or self-care (01) ==
PROVIDERS: Emergency Provider Emergency Medicine Emergency Medical Services; PCP Nurse Practitioner Family
DX: F43.22 Adjustment disorder with anxiety (principal); F10.90 Alcohol use, unspecified, uncomplicated; Y90.9 Presence of alcohol in blood, level not specified; Z79.899 Other long term (current) drug therapy
CPT/HCPCS: 99283

== ENCOUNTER 2023-01-07 10:55 | Outpatient (AMB) | payer OTHER, SELFPAY ==
--- NOTE | 2023-01-07 10:56 | MHC.PC.OV ---
Vital Signs 01/07/23 10:57 Height 5 ft 2 in Weight 136 lb BMI 24.9 BP 110/72 Blood Pressure Location Rt brachial Position Sitting Pulse 83 Pulse Source Pulse Oximeter Pulse Oximetry (%) 97 Oxygen Delivery Method Room Air Intake Visit Reasons: PE Allergies No Known Allergies Allergy (Verified 01/07/23 10:58) Tobacco use date assessed: 01/07/23 Dental Screening Dental Screen Date: 01/07/23 Did you have a dental visit in the last 12 months?: No Did you have a dental problem in the last 6 months where you did not have access to dental care?: No Was dental information given to patient?: Patient has dentist HPI PE HPI Details Pt is here for a PE. Will order labs. 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 Pt is requesting STD testing, though denies any symptoms, will order. Pt would like a BV screen as well because she is prone to this. [facility] Medical History Chronic back pain Concern about STD in female without diagnosis Surgical History H/O esophagogastroduodenoscopy No pertinent past surgical history Family History Father History of back surgery Mother Depression History of back surgery Brother No problems noted. Brother No problems noted. Sister No problems noted. Social History Housing: House Alcohol intake: current Alcohol intake frequency: a few times a week Patient Tobacco Use Status: Never used Tobacco e-Cigarette/Vaping Use: Never Used Current occupational status: employed Gender identity: Female Cognitive needs: No Hearing needs: No Vision needs: No Female Reproductive History Menstrual Age of Menarche: 14 Questionnaire Thrive Questionnaire Date Thrive assessed: 08/03/21 NIMA-7 AMB Questionnaire NIMA-7 Date NIMA - 7 assessed: 08/03/21 Source: Developed by Drs. Bal Yeung, Ernestina Iniguez, Cameron Salgado and colleagues, with an educational lizzy from [employer]. Review of Systems Const Denies chills and Denies fever(s) Eyes Denies blurry vision ENT Denies vertigo, Denies dizziness and Denies sore throat Card Denies chest pain at rest, Denies chest pain with activity, Denies diaphoresis, Denies dyspnea and Denies dyspnea on exertion Resp Denies cough, Denies dyspnea, Denies dyspnea on exertion and Denies wheezing GI Denies abdominal pain, Denies melena, Denies hematochezia, Denies constipation, Denies diarrhea and Denies loose stools Denies hematuria Musc Denies numbness and Denies tingling Skin/Breast Denies lesions Neuro Denies vertigo, Denies dizziness, Denies numbness and Denies tingling Psych Denies anxiety, Denies depression, Denies homicidal ideation, Denies suicidal ideation and Denies other (substance abuse) Aller/Immun Denies wheezing Physical exam (Primary Care) Vital Signs: Last Vital Signs Pulse 83 01/07/23 10:57 BP 110/72 01/07/23 10:57 Pulse Ox 97 01/07/23 10:57 Oxygen Delivery Method Room Air 01/07/23 10:57 BMI result Body Mass Index 24.9 Tobacco/Smoking Status: Tobacco use Status Tobacco use date assessed 01/07/23 01/07/23 11:01 Patient Tobacco Use Status Never used Tobacco 01/07/23 11:01 e-Cigarette/Vaping Use Never Used 01/07/23 11:01 Thrive Assessment: Date of Thrive Assessment Date Thrive assessed 08/03/21 01/07/23 11:01 Const General: cooperative Nutritional Appearance: well nourished Orientation/consciousness: patient oriented x3 HENMT Head: Yes normal to inspection, Yes normocephalic and Yes atraumatic Ears: TM's normal bilaterally Eyes General: appearance normal, both eyes and all related structures Alignment and Position: alignment normal and position normal Neck Neck: Yes normal visual inspection and Yes no lymphadenopathy Thyroid: Thyroid normal Resp Effort & Inspection: normal respiratory effort Auscultation: clear to auscultation bilaterally Cardio Rate: regular rate Rhythm: regular rhythm Heart sounds: S1 normal heart sound present, S2 normal heart sound present and no murmurs GI Palpation (GI): Soft to palpation and nontender Auscultation: normal bowel sounds Skin Rashes: no rashes Neuro General: patient oriented x3, moves all extremities, no focal motor deficits and deep tendon reflexes 2+ bilaterally Romberg Test: Negative Psych Appearance: grossly normal Mental Status: mental status grossly normal Speech and movement: Normal speech and movement present Affect: normal affect Attitude: cooperative Thought process: Normal thought process present Thought content: Normal thought content present Insight: Good insight present (Psych) Judgement: Good judgement present (Psych) Assessment and Plan Assessment & Plan (1) Physical exam: Code(s): Z00.00 - Encounter for general adult medical examination without abnormal findings (2) Screen for STD (sexually transmitted disease): Code(s): Z11.3 - Encounter for screening for infections with a predominantly sexual mode of transmission (3) Bacterial vaginosis: Code(s): N76.0 - Acute vaginitis; B96.89 - Other specified bacterial agents as the cause of diseases classified elsewhere Plan The patient agreed to the use of a medical records library professor for this encounter. Scribed for LIBRADO Christina by Masha Troy medical records library professor, on 01/07/2023 at 11:15 EST. Orders: Orders Comprehensive [place]. Panel Fast Today Z00.00 - Encounter for general adult medical examination without abnormal findings Lipid Panel Today Z00.00 - Encounter for general adult medical examination without abnormal findings TSH reflex Free T4 Today Z00.00 - Encounter for general adult medical examination without abnormal findings Complete Blood Count Auto Diff Today Z00.00 - Encounter for general adult medical examination without abnormal findings UA CC w/rflx Micro + Cult Today Z00.00 - Encounter for general adult medical examination without abnormal findings HIV Ab/Ag Today Z11.3 - Encounter for screening for infections with a predominantly sexual mode of transmission Syphilis Screen Today Z11.3 - Encounter for screening for infections with a predominantly sexual mode of transmission CT NG by PCR Today Z11.3 - Encounter for screening for infections with a predominantly sexual mode of transmission Bacterial Vaginosis Panel Today B96.89 - Other specified bacterial agents as the cause of diseases classified elsewhere, N76.0 - Acute vaginitis Coding Level of Care Code Est Pt Prev Care 18-39y(22306) Diagnoses Physical exam Z00.00 Screen for STD (sexually transmitted disease) Z11.3 Bacterial vaginosis N76.0; B96.89
[2023-01-07 10:57] VITALS: BP 110/72; PULSE 83; O2SAT 97; BMI 24.9
== END 2023-01-07 11:42 | disposition home or self-care (01) ==
PROVIDERS: Visit Provider Nurse Practitioner Family
DX: Z00.00 Encounter for general adult medical examination without abnormal findings (principal); Z11.3 Encounter for screening for infections with a predominantly sexual mode of transmission; N76.0 Acute vaginitis; B96.89 Other specified bacterial agents as the cause of diseases classified elsewhere
CPT/HCPCS: 99395

== ENCOUNTER 2023-01-07 11:29 | Outpatient (REF) | payer OTHER, SELFPAY ==
[2023-01-08 12:08] LABS: BV Int Neg Control Negative (Negative); BV Int Pos Control Positive (Positive)
[2023-01-09 03:48] LABS: HIV AB/AG Nonreactive (Nonreactive); HIV Num 1 0.11 S/CO (0.00-0.99)
== END 2023-01-07 11:30 | disposition home or self-care (01) ==
LOC: HO.HMGCLDS 11:29
PROVIDERS: PCP Nurse Practitioner Family; Visit Provider Nurse Practitioner Family
DX: Z00.00 Encounter for general adult medical examination without abnormal findings (principal); Z11.4 Encounter for screening for human immunodeficiency virus [HIV]; B96.89 Other specified bacterial agents as the cause of diseases classified elsewhere; N76.0 Acute vaginitis; Z20.2 Contact with and (suspected) exposure to infections with a predominantly sexual mode of transmission; Z13.220 Encounter for screening for lipoid disorders; Z13.29 Encounter for screening for other suspected endocrine disorder
CPT/HCPCS: 36415; 80053; 80061; 81003; 84443; 85025; 86780; 87389; 87480; 87510; 87660

== ENCOUNTER 2023-01-07 13:24 | Outpatient (REF) | payer OTHER, SELFPAY | END 2023-01-07 13:25 | disposition home or self-care (01) | LOC: HO.LAB 13:24 | PROVIDERS: Visit Provider Nurse Practitioner Family | DX: Z13.89 Encounter for screening for other disorder (principal) ==

== ENCOUNTER 2023-02-27 15:17 | Outpatient (AMB) | payer OTHER, SELFPAY ==
--- NOTE | 2023-02-27 15:19 | MHC.OFFVIS ---
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 Lsat Instructor Required: No Accompanied by: Self / Same As Patient Allergies No Known Allergies Allergy (Verified 02/27/23 15:24) Medication List - Last Reconciled 02/27/23 by Wilfrid Kruse MD ibuprofen 800 mg PO Q8H PRN 15 days HPI HPI Comments History of Present Illness Details Pleasant 27-year-old female was seen previously in 2018 when she presented for palpitations. She was getting PVCs on Holter monitoring and was using Adderall because she was working night shifts. She has not followed up with us since then. She is now presenting because she has been experiencing some chest pains. She is describing random left-sided chest discomfort which happens off and on. This can last for 5 minutes. This is not exertional. She was exercising previously and was doing 30 minute exercise this is where she was lifting weights and did not have any symptoms before but recently has not been exercising regularly. She smokes weed. She does not have any history of asthma but has chronic cough. She uses ibuprofen up to once a month. [facility] Medical History Chronic back pain Concern about STD in female without diagnosis Surgical History H/O esophagogastroduodenoscopy No pertinent past surgical history Family History Father History of back surgery Mother Depression History of back surgery Brother No problems noted. Brother No problems noted. Sister No problems noted. Social History Housing: House Alcohol intake: current Alcohol intake frequency: a few times a week Patient Tobacco Use Status: Never used Tobacco e-Cigarette/Vaping Use: Never Used Current occupational status: employed Gender identity: Female Cognitive needs: No Hearing needs: No Vision needs: No Female Reproductive History Menstrual Age of Menarche: 14 Review of Systems Const Denies chills, Denies daytime sleepiness, Denies fatigue, Denies fever(s), Denies frequent falls, Denies night sweats, Denies snoring, Denies weakness, Denies weight gain and Denies weight loss Eyes Denies loss of vision ENT Denies dizziness and Denies hearing loss Card Denies chest pain, Denies chest pain with activity, Denies syncope, Denies rapid heart rate, Denies edema, Denies claudication, Denies leg edema, Denies lightheadedness, Denies palpitations, Denies dyspnea, Denies dyspnea on exertion and Denies orthopnea Resp Denies cough, Denies excessive phlegm production, Denies dyspnea, Denies dyspnea on exertion, Denies snoring and Denies wheezing GI Denies abdominal pain, Denies hematochezia, Denies change in bowel habits, Denies change in stool character, Denies heartburn, Denies nausea and Denies vomiting Denies hematuria, Denies urinary frequency and Denies dysuria Musc Denies arthralgias, Denies muscle weakness, Denies numbness and Denies tingling Skin/Breast Denies nail changes and Denies rash Neuro Denies Abnormal speech present, Denies dizziness, Denies syncope, Denies frequent falls, Denies loss of vision, Denies memory loss, Denies numbness, Denies tingling and Denies weakness Psych Denies depression and Denies memory loss Endo Denies fatigue and Denies palpitations Aller/Immun Denies wheezing Physical Exam Vital Signs: Last Vital Signs Pulse 78 02/27/23 15:20 BP 116/82 02/27/23 15:20 BMI result Body Mass Index 24.8 GENERAL APPEARANCE: in no acute distress, pleasant. NECK: no carotid bruit, no jugular venous distention. SKIN: no suspicious lesions, warm and dry. HEART: no murmurs, regular rate and rhythm. LUNGS: clear to auscultation bilaterally. ABDOMEN: soft, nontender. EXTREMITIES: no edema. PERIPHERAL PULSES: equal. NEUROLOGIC: No gross deficits, AAO X 3 Neuro Speech: No Abnormal speech present Office Procedures EKG Details: Sinus rhythm 78 beats per minute, normal ECG, QTC 412 milliseconds. [id number], Complete Assessment & Plan Assessment & Plan (1) Chest pain: Code(s): R07.9 - Chest pain, unspecified Plan 27 year female who is here for assessment of chest pain. She has left-sided chest discomfort which happens randomly. I think this is likely non anginal chest pain. We will check echo to rule out any structural issues. I have advised her to try Prilosec [id number]. She is going to start exercising regularly. I have explained to her that if she gets chest discomfort with exertion consistently then she should call us and we will arrange exercise stress test. Will get a fasting lipid panel on her. Thank you for allowing me to participate in the care of your patient. Please feel free to contact me if you have any questions. Orders: Orders CA echo transthoracic complete Today R07.9 - Chest pain, unspecified Lipid Panel Today R07.9 - Chest pain, unspecified Coding Level of Care Code New Pt Level 4 (37682) Diagnoses Chest pain R07.9 CPT Codes EKG - CPT: 15812-Thbepmlnypppchqcy, Complete ([id number])
[2023-02-27 15:20] VITALS: BP 116/82; PULSE 78; BMI 24.8
== END 2023-02-27 15:45 | disposition home or self-care (01) ==
PROVIDERS: PCP Nurse Practitioner Family; Visit Provider Internal Medicine Cardiovascular Disease
DX: R07.9 Chest pain, unspecified (principal)
CPT/HCPCS: 93010; 99204

== ENCOUNTER → 2023-02-27 15:17 | Outpatient (BNVA) | payer OTHER, SELFPAY | PROVIDERS: PCP Nurse Practitioner Family; Visit Provider Internal Medicine Cardiovascular Disease | DX: R07.9 Chest pain, unspecified (principal); I49.8 Other specified cardiac arrhythmias | CPT/HCPCS: 93005 ==

== ENCOUNTER 2023-02-28 13:24 | Outpatient (REF) | payer OTHER, SELFPAY | END 2023-02-28 13:25 | disposition home or self-care (01) | LOC: HO.LAB 13:24 | PROVIDERS: Visit Provider Advanced Practice Midwife | DX: Z13.89 Encounter for screening for other disorder (principal) ==

== ENCOUNTER 2023-03-01 07:09 | Outpatient (REF) | payer OTHER, SELFPAY ==
[2023-03-01 07:21] LABS: MANUAL DIFF FLAG NO
[2023-03-01 07:42] LABS: Basophils Absolute Auto 0.1 X10*3/uL (0.0-0.2); Basophils Percent Auto 0.6 % (0-2); Eosinophils Absolute Auto 0.2 X10*3/uL (0.0-0.4); Hematocrit 45.3 % (37.0-47.0); Hemoglobin 15.3 g/dl (12.0-16.0); Imm Gran Abs Auto 0.04 X10*3/uL (0.00-0.03); Imm Gran Pct Auto 0.5 % (0.0-0.4); Lymphocytes Absolute Auto 2.3 X10*3/uL (1.2-4.9); Lymphocytes Percent Auto 27.3 % (20-40); Mean Corpuscular HGB Conc 33.8 g/dl (31.0-35.0); Mean Corpuscular Hemoglobin 33.5 pg (27.0-33.0); Mean Corpuscular Volume 99.1 fL (80.0-98.0); Mean Platelet Volume 10.3 fL (9.4-12.3); Monocytes Absolute Auto 0.7 X10*3/uL (0.1-1.2); Monocytes Percent Auto 7.8 % (2-11); Neutrophils Absolute Auto 5.3 x10*3/uL (2.0-8.3); Neutrophils Percent Auto 61.8 % (45-73); Platelet Count 265 X10*3/uL (160-400); Red Blood Count 4.57 X10*6/uL (4.20-5.50); Red Cell Distribution Width 11.9 % (11.0-16.0); White Blood Count 8.6 X10*3/uL (4.8-10.8)
[2023-03-01 08:01] LABS: Cholesterol 162 mg/dL (<200); HDL Cholesterol 65 mg/dL (>40); LDL Cholesterol Calculated 90 mg/dL (<100); Triglycerides 39 mg/dL (<150)
[2023-03-01 08:32] LABS: Syphilis Screen Nonreactive (Nonreactive)
[2023-03-01 08:33] LABS: HBsAGNum1 0.36 S/CO (0.00-0.99); HIV AB/AG Nonreactive (Nonreactive); HIV Num 1 0.09 S/CO (0.00-0.99); Hepatitis B Surface Antigen Negative (Negative); ~HepC Num1 0.86 S/CO (0.00-0.79)
[2023-03-01 11:21] LABS: CT PCR NOT DETECTED (Not Detect.); NG PCR NOT DETECTED (Not Detect.)
[2023-03-01 11:49] LABS: ~HepC Num2 0.12; ~HepC Num3 0.13; ~Hepatitis C Antibody NONREACTIVE (Nonreactive)
== END 2023-03-01 07:10 | disposition home or self-care (01) ==
LOC: HO.LAB 07:09
PROVIDERS: Absent Provider Internal Medicine Cardiovascular Disease; PCP Nurse Practitioner Family; Referring Provider Advanced Practice Midwife; Visit Provider Nurse Practitioner Family
DX: Z11.4 Encounter for screening for human immunodeficiency virus [HIV] (principal); R07.9 Chest pain, unspecified; B96.89 Other specified bacterial agents as the cause of diseases classified elsewhere; D72.829 Elevated white blood cell count, unspecified; N76.0 Acute vaginitis; Z20.2 Contact with and (suspected) exposure to infections with a predominantly sexual mode of transmission
CPT/HCPCS: 0353U; 36415; 80061; 85025; 86780; 86803; 87340; 87389

== ENCOUNTER → 2023-04-10 15:16 | Outpatient (BNV) | payer OTHER, SELFPAY | PROVIDERS: PCP Nurse Practitioner Family; Visit Provider Internal Medicine Cardiovascular Disease | DX: R07.9 Chest pain, unspecified (principal) | CPT/HCPCS: 93306 ==

== ENCOUNTER → 2023-04-10 15:16 | Outpatient (REF) | payer OTHER, SELFPAY ==
--- NOTE | 2023-04-10 15:16 | CA_ITS ---
Transthoracic Echocardiogram Patient (Last, First, Middle): Cassidy Yeung, Gender: Female Date of : 1995 Age: 27 Procedure Date: 04/10/2023 Procedure Type: Transthoracic Echocardiogram Location: OP Height: 157.48 cm Weight: 62.6 kg BSA: 1.63 m2 Heart Rate: bpm BP: 110 / 70 mmHg Wet Pour Mixer: TO Referring MD: Wilfrid Kruse MD Electrical Systems Designer: Wilfrid Kruse MD Symptoms: R07.9 - Chest pain, unspecified Study Quality: Fair Conclusions: - Normal left ventricular size, thickness, systolic function, and wall motion. - Normal right ventricular cavity size and systolic function. Findings Left Ventricle Normal left ventricular size, thickness, systolic function, and wall motion. The visually estimated ejection fraction is between 60-65%. Diastolic function is normal for age. Right Ventricle Normal right ventricular cavity size and systolic function. Atria The left atrium is normal in size. The right atrium is normal in size. Aortic Valve Normal aortic valve structure and function. There is no aortic valve stenosis. There is no aortic valve regurgitation. Mitral Valve Normal mitral valve structure and function. There is no mitral valve regurgitation. There is no mitral valve stenosis. Pulmonic Valve The pulmonic valve is likely normal. Tricuspid Valve Normal tricuspid valve structure and function. There is no tricuspid valve regurgitation. Normal right atrial pressure. There is no evidence of pulmonary hypertension. Great Vessels All visible segments of the aorta are normal in size. The visualized portions of the pulmonary artery and branches are normal. Venous The inferior vena cava is normal in size and collapses greater than 50% with inspiration. Pericardium/Pleural There is no evidence of pericardial effusion. Measurements 2D Linear Measurements IVSd: 0.80 0.6-0.9/0.6-1.0 cm LVIDd: 4.20 3.9-5.3/4.2-5.9 cm LVIDd Index: 2.58 2.4-3.2/2.2-3.1 cm/m2 LVIDs: 3.00 2.0-3.6 cm LVPWd: 0.60 0.7-1.1 cm LA Diam: 2.60 2.7-3.8/3.0-4.0 cm LAIDs Index: 1.60 1.5-2.3 cm/m2 LV Mass: 105.59 67-162/88-224 g LV Mass Index: 64.78 43-95/49-115 g/m2 LVOT Diam: 2.10 3.0+(-)1.3 cm 2D Systolic Function EF 4C: 64.80 >55% EF 2C: 59.20 >55% EF BiP: 62.10 >55% Mitral Valve MV Pk E: 0.92 MV PK A: 0.35 MV Decel Time: 192.00 E/A: 2.60 E'Lateral: 14.10 E'Medial: 9.14 E/E' Med: 10.00 E/E' Lat: 6.50 PHT: 56.00 MVA PHT: 3.93 Decel Wallace: 4.78 Aortic Valve AoV Pk Sherif: 1.15 AoV Mn Sherif: 0.73 AoV VTI: 0.24 AoV Pk Grad: 5.00 Aov Mn Grad: 3.00 ESSENCE Cont.VTI: 2.56 LVOT LVOT Pk Sherif: 0.83 LVOT Mn Sherif: 0.55 LVOT VTI: 0.18 LVOT Pk Grad: 3.00 LVOT Mn Grad: 1.00 LVOT Diam: 2.10 LVOT Area: 3.46 Diastolic Function MV Pk E: 0.92 MV Pk A: 0.35 E/A: 2.60 E'Medial: 9.14 E/E' Med: 10.00 E' Laterial: 14.10 E/E' Lat: 6.50 Right Ventricle TAPSE (mm): 25.40 TVS' Sherif: 12.20 Tricuspid Valve TR Pk Sherif: 1.91 TR Pk Grad: 15.00 RA Press: 8.00 RVSP: 23.00 Great Vessels Aorta Sinus of Valsalva: 3.00 2.0-3.[address] Ridge: 2.70 1.7-3.4 cm Ao Asc: 2.90 2.1-3.4 cm Updated in Other Vendor System with Status of Final Wilfrid Kruse MD electronically signed on 04/11/2023 9:12:36 PM with status of Final
== END ==
LOC: HO.CARD 15:16
PROVIDERS: PCP Nurse Practitioner Family; Visit Provider Internal Medicine Cardiovascular Disease
DX: R07.9 Chest pain, unspecified (principal)
CPT/HCPCS: 93306

== ENCOUNTER 2023-07-16 13:11 | Outpatient (REF) | payer OTHER, SELFPAY ==
[2023-07-17 11:24] LABS: CT PCR NOT DETECTED (Not Detect.); NG PCR NOT DETECTED (Not Detect.)
[2023-07-17 13:24] LABS: BV Int Neg Control Negative (Negative); BV Int Pos Control Positive (Positive)
== END 2023-07-16 13:12 | disposition home or self-care (01) ==
LOC: HO.LNP 13:11
PROVIDERS: PCP Nurse Practitioner Family; Visit Provider Advanced Practice Midwife
DX: Z20.2 Contact with and (suspected) exposure to infections with a predominantly sexual mode of transmission (principal)
CPT/HCPCS: 0353U; 87480; 87510; 87660

== ENCOUNTER 2023-07-16 13:11 | Outpatient (AMB) | payer OTHER, SELFPAY ==
[2023-07-16 13:12] VITALS: BP 120/72; BMI 25.1
--- NOTE | 2023-07-16 13:12 | MHC.OFFVIS ---
Intake Vital Signs 07/16/23 13:12 Height 5 ft 2 in Weight 137 lb BMI 25.1 BP 120/72 Intake Visit Reasons: ? BV Intake Note: BV symptoms also has new partner and would like STD testing Oracle Programmer Analyst Required: No Information Interpreted: non-clinical & clinical Pediatric Assistant: Pediatric Assistant Present (Edmund) Allergies No Known Allergies Allergy (Verified 07/16/23 13:13) Medication List - Last Reconciled 07/16/23 by Kimberly Lindsey CNM ibuprofen 800 mg PO Q8H PRN 15 days valacyclovir 1,000 mg PO BID Is last menstrual period known: Yes Last menstrual period: 07/01/23 Post menopausal: No HPI ? BV HPI Details And is here could she wants to check for STDs and also to see if she is BV she had a new partner and while she normally uses condoms there was 1 time when she did not she has had normal periods since so she has not really worried about . She could not really tell if the discharge had an odor so she just wants to get checked. She is happy with condom use and has used other methods in the past. She thought that she had been getting regular Pap smears and now when she thinks of it she thinks she last had 1 done in [place] and that she has an annual exam there coming up in a couple of months. She thought that her last Pap smear was negative. She often uses boric acid if she thinks she might have some BV and she used it last night. Generally it works for her. [facility] Medical History Concern about STD in female without diagnosis Chronic back pain Surgical History H/O esophagogastroduodenoscopy No pertinent past surgical history Family History Father History of back surgery Mother Depression History of back surgery Brother No problems noted. Brother No problems noted. Sister No problems noted. Social History Housing: House Alcohol intake: current Alcohol intake frequency: a few times a week Patient Tobacco Use Status: Never used Tobacco e-Cigarette/Vaping Use: Never Used Current occupational status: employed Gender identity: Female Cognitive needs: No Hearing needs: No Vision needs: No Female Reproductive History Menstrual Age of Menarche: 14 Duration of menses: 3-5 days Date of last menstrual period: 07/01/23 control method: condoms Total pregnancies: 0 Date of last pap smear: 09/30/20 (+HPV) History of abnormal pap smear: Yes (2017 [facility]) Physical Exam Vital Signs: Last Vital Signs BP 120/72 07/16/23 13:12 BMI result Body Mass Index 25.1 External Female Exam: normal external appearance and normal appearance of the urethra Speculum Exam - Vagina: normal appearance of the vagina and normal vaginal discharge Speculum Exam - Cervix: normal appearance of the cervix and Cervical os closed Results Reviewed Results Reviewed: Previous abnormal Paps and system. Assessment & Plan Assessment & Plan (1) Screen for STD (sexually transmitted disease): Code(s): Z11.3 - Encounter for screening for infections with a predominantly sexual mode of transmission Plan Testing done for gonorrhea chlamydia trichomoniasis Gardnerella and Traci. Her discharge looked up perfectly fine with her clear nulliparous pink cervix. Discussed follow-up of Pap smears. Seems she has been going elsewhere so she just needs to decide where she would like to be seen and choose [address] She thinks that she would like to return here so if she wishes she may make an appointment. I offered to place an order for blood work for STIs in the system that she can get done when she wishes and she may do them at any time. Has and just please visit for outbreak since she has no longer with the partner that she she rare outbreaks, We will call her if there is any positive test results. Orders: Orders HIV Ab/Ag Today Z11.3 - Encounter for screening for infections with a predominantly sexual mode of transmission Hepatitis B Surface Antigen Today Z11.3 - Encounter for screening for infections with a predominantly sexual mode of transmission Hepatitis C Antibody Today Z11.3 - Encounter for screening for infections with a predominantly sexual mode of transmission Syphilis Screen Today Z11.3 - Encounter for screening for infections with a predominantly sexual mode of transmission Coding Level of Care Code Est Pt Level 3 (35205) Diagnoses Screen for STD (sexually transmitted disease) Z11.3
--- OUTSIDE RECORDS SUMMARY | 2023-07-16 13:13 | XMS_ITS | Patient Health Record ---
Author Name Unknown Organization [facility] Address [address] Care Team Providers Care Informatics Coordinator Name Role Phone Hermes Curtis Primary Care Provider Unav ailTwyla Hernandes Unavailable [phone] ALLERGIES No Known Allergies REASON FOR REFERRAL No Information MEDICATIONS Medication SIG (Take, Route, Fr equency, Duration) Notes Start Date End Date Status Physical Therapy . . B/L achilles tendo nitis 2-3x/week Active SOCIAL HISTORY Tobacco Use: Social History Observation Description Date Details (start date - stop date) Never Smoker NA - NA Sex Assigned At : Social History Observation Description Sex Assigned At Unknown Tobacco Use/Smoking Question Answer Notes Are you a: nonsmoker Alcohol Screen Question Answer Notes Did you have a drink contain ing alcohol in the past year? Yes How often did you have 6 or more drinks on one occasion in the past year? Daily or almost daily (4 points) Points 4 Interpretation Positive Tobacco use other than smoking: Question Answer Notes Are you an other tobacco user? 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) VITAL SIGNS Height 5ft 2in in 07/31/2022 Weight 120 lbs 07/31/2022 BMI 21.95 kg/m2 07/31/2022 Encounters Encounter Location Date Provider Diagnosis [facility] [address] [address] 07/31/2022 Twyla Cummings Achilles tendinitis, right leg M76.61 ; Acquired Eloisa's deformity of right heel M92.61 ; Ingrowing nail L60.0 ; Achilles tendinitis of left lower extremity M76.62 ; Eloisa's deformity of left heel M92.62 and Tinea unguium B35.[address] [facility] [address] [address] 07/31/2022 Twyla Cumimngs ASSESSMENTS Encounter Date Diagnosis Assessment Notes Treatment Notes Treatment Clinical Notes 07/31/2022 Achilles tendinitis, right leg (ICD-10 - M76.61) Patient Educated with: HEEL CORD STRETCHES.pdf (HEEL CORD STRETCHES.pdf) Patient Educated with: RICE THERAPY.pdf (RICE THERAPY.pdf) 07/31/2022 Acquired Eolisa's deformity of right heel (ICD-10 - M92.61) 07/31/2022 Ingrowing nail (ICD-10 - L60.0) 07/31/2022 Achilles tendinitis of left lower extremity (ICD-10 - M76.62) 07/31/2022 Eloisa's deformity of left heel (ICD-10 - M92.62) 07/31/2022 Tinea unguium (ICD-10 - B35.1) PLAN OF TREATMENT Pending Test Test Name Order Date X ray : Foot, left 3V 07/31/2022 X ray : Foot, right 3V 07/31/2022 X ray : Foot, right 3V 2021 Insurance Providers Payer Name Payer Address Payer Phone Subscriber Number Group Number Insured Name Patient Relationship to Insured Coverage Start Date Coverage End Date [facility] [address] [place] [id number] Yeung Self - patient is the insured MEDICAL (GENERAL) HISTORY Medical History History ICD Code Back pain Anxiety Surgical History Surgery Date(Month/Year) endoscopy
== END 2023-07-16 13:37 | disposition home or self-care (01) ==
LOC: HO.HWSM 13:11
PROVIDERS: PCP Nurse Practitioner Family; Visit Provider Advanced Practice Midwife
DX: Z11.3 Encounter for screening for infections with a predominantly sexual mode of transmission (principal)
CPT/HCPCS: 99213

== ENCOUNTER 2023-12-23 10:29 | Outpatient (AMB) | payer OTHER, SELFPAY ==
[2023-12-23 11:48] VITALS: BP 120/80; PULSE 86; O2SAT 98; BMI 24.9
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
== END 2023-12-23 12:37 | disposition home or self-care (01) ==
PROVIDERS: PCP Nurse Practitioner Family; Visit Provider Internal Medicine
DX: S46.812A Strain of other muscles, fascia and tendons at shoulder and upper arm level, left arm, initial encounter (principal); M94.0 Chondrocostal junction syndrome [Tietze]
CPT/HCPCS: 99213

== ENCOUNTER 2024-02-28 08:05 | Outpatient (AMB) | payer OTHER, SELFPAY ==
[2024-02-28 08:07] VITALS: BP 122/84; PULSE 78; O2SAT 98; BMI 25.2
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
== END 2024-02-28 08:44 | disposition home or self-care (01) ==
PROVIDERS: PCP Nurse Practitioner Family; Visit Provider Physician Assistant
DX: N30.01 Acute cystitis with hematuria (principal); Z11.3 Encounter for screening for infections with a predominantly sexual mode of transmission
CPT/HCPCS: 81003; 99214

== ENCOUNTER 2024-02-28 08:45 | Outpatient (REF) | payer OTHER, SELFPAY ==
[2024-02-28 14:43] LABS: CT PCR NOT DETECTED (Not Detect.); NG PCR NOT DETECTED (Not Detect.)
== END 2024-02-28 08:46 | disposition home or self-care (01) ==
LOC: HO.LAB 08:45
PROVIDERS: Visit Provider Physician Assistant
DX: Z11.3 Encounter for screening for infections with a predominantly sexual mode of transmission (principal)
CPT/HCPCS: 87491; 87591

== ENCOUNTER 2024-03-13 11:00 | Outpatient (REF) | payer OTHER, SELFPAY ==
[2024-03-17 04:39] LABS: CT PCR NOT DETECTED (Not Detect.); NG PCR NOT DETECTED (Not Detect.)
[2024-03-17 11:23] LABS: Bacterial Vaginosis PCR NEGATIVE (Negative); Candida Group PCR NOT DETECTED (Not Detect); Candida glab krusei PCR NOT DETECTED (Not Detect); Trichomonas vaginalis PCR DETECTED (Not Detect)
== END 2024-03-13 11:01 | disposition home or self-care (01) ==
LOC: HO.LAB 11:00
PROVIDERS: PCP Nurse Practitioner Family; Visit Provider Advanced Practice Midwife
DX: N89.8 Other specified noninflammatory disorders of vagina (principal); Z20.2 Contact with and (suspected) exposure to infections with a predominantly sexual mode of transmission
CPT/HCPCS: 0352U; 87491; 87591

== ENCOUNTER 2024-03-13 11:00 | Outpatient (AMB) | payer OTHER, SELFPAY ==
[2024-03-13 11:14] VITALS: BP 116/62; BMI 25.2
--- NOTE | 2024-03-13 11:14 | MHC.OFFVIS ---
Vital Signs 03/13/24 11:14 Height 5 ft 2 in Weight 138 lb BMI 25.2 BP 116/62 Intake Visit Reasons: Vaginal discharge Balance Sheet Analyst Required: No Information Interpreted: clinical only Allergies No Known Allergies Allergy (Verified 03/13/24 11:16) Medication List - Last Reconciled 03/13/24 by Kimberly Lindsey CNM No Known Home Meds Is last menstrual period known: Yes Last menstrual period: 02/15/24 HPI HPI Vaginal discharge: Details: An unusual sensation 2 weeks ago from her left labia to her buttocks and she went to urgent care and they treated her for UTI and did testing for STIs and she said they told her there was nothing there. She is still paranoid she uses condoms when she has sex she just started with a new partner she would be interested in making sure she does not have any STI at all even though she was careful but she is worried that she would be the 1 in 100 where the condom might break. She has also been constipated. She said she was treated for UTI but did not notice any difference but still just wants to double check on everything she thought she was having a yellow discharge. [facility] Medical History Concern about STD in female without diagnosis Chronic back pain Surgical History H/O esophagogastroduodenoscopy No pertinent past surgical history Family History Father History of back surgery Mother Depression History of back surgery Brother No problems noted. Brother No problems noted. Sister No problems noted. Social History Housing: House Alcohol intake: current Alcohol intake frequency: a few times a week Patient Tobacco Use Status: Never used Tobacco e-Cigarette/Vaping Use: Never Used Current occupational status: employed Gender identity: Female Cognitive needs: No Hearing needs: No Vision needs: No Female Reproductive History Menstrual Age of Menarche: 14 Duration of menses: 3-5 days Date of last menstrual period: 02/15/24 control method: none Total pregnancies: 0 Full term: 0 Physical Exam Vital Signs: Last Vital Signs BP 116/62 03/13/24 11:14 BMI result Body Mass Index 25.2 Other: Normal external exam no lesions seen vagina pink and moist cervix nulliparous pink moist healthy appearing no abnormal discharge appreciated at all cervix is long close thick mobile nontender uterus midposition mobile nontender small adnexa nontender nonenlarged tone with Kegel. External Female Exam: normal external appearance Speculum Exam - Vagina: normal appearance of the vagina and normal vaginal discharge Speculum Exam - Cervix: normal appearance of the cervix Bimanual exam- vagina & uterus: normal bimanual exam, uterine size normal, consistency normal, uterine mobility normal, uterine shape normal and non-tender Bimanual Exam- Adnexa, other: normal adnexae, no masses and No adnexal tenderness Assessment & Plan Assessment & Plan (1) Screen for STD (sexually transmitted disease): Code(s): Z11.3 - Encounter for screening for infections with a predominantly sexual mode of transmission Category: Medical (2) Vaginal discharge: Comment: Nothing abnormal evident today 03/13/2024. Code(s): N89.8 - Other specified noninflammatory disorders of vagina Category: Medical (3) Uses condoms as primary control method: Comment: And for safer sex.... Code(s): Z78.9 - Other specified health status Category: Social Hx Plan Reviewed her symptoms and concerns in great detail. No pathology evident today whatsoever she said she would accept testing for STIs and when I went to place orders it turns out there orders in there from July of 2023 so she will go to the lab sometime at her convenience. Discussed constipation and recommend increased vegetables and increased water she just started using a small stool to help her go to the bathroom as well. Discussed that being careful and concerned about STIs is inherently not a bad thing in that it helps keep her safe and she is thinking outside the box. We will see her for annual exams. Orders: Orders CT NG by PCR Today N89.8 - Other specified noninflammatory disorders of vagina, Z20.2 - Contact with and (suspected) exposure to infections with a predominantly sexual mode of transmission Bacterial Vaginosis Panel Today N89.8 - Other specified noninflammatory disorders of vagina Coding Level of Care Code Est Pt Level 3 (36240) Diagnoses Screen for STD (sexually transmitted disease) Z11.3 Vaginal discharge N89.8 Uses condoms as primary control method Z78.9
== END 2024-03-13 12:24 | disposition home or self-care (01) ==
PROVIDERS: PCP Nurse Practitioner Family; Visit Provider Advanced Practice Midwife
DX: Z11.3 Encounter for screening for infections with a predominantly sexual mode of transmission (principal); N89.8 Other specified noninflammatory disorders of vagina; Z78.9 Other specified health status
CPT/HCPCS: 99213

== ENCOUNTER 2024-05-20 09:28 | Outpatient (AMB) | payer OTHER, SELFPAY ==
[2024-05-20 09:34] VITALS: BP 118/72; BMI 24.1
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
== END 2024-05-20 10:19 | disposition home or self-care (01) ==
PROVIDERS: PCP Nurse Practitioner Family; Visit Provider Advanced Practice Midwife
DX: Z01.419 Encounter for gynecological examination (general) (routine) without abnormal findings (principal); A59.9 Trichomoniasis, unspecified; Z11.3 Encounter for screening for infections with a predominantly sexual mode of transmission; Z12.4 Encounter for screening for malignant neoplasm of cervix
CPT/HCPCS: 99395

== ENCOUNTER 2024-05-20 09:28 | Outpatient (REF) | payer OTHER, SELFPAY ==
[2024-05-21 07:42] LABS: CT PCR NOT DETECTED (Not Detect.); NG PCR NOT DETECTED (Not Detect.)
[2024-05-21 10:17] LABS: HPV 16,18/45 See PAP report
[2024-05-21 11:42] LABS: Bacterial Vaginosis PCR NEGATIVE (Negative); Candida Group PCR NOT DETECTED (Not Detect); Candida glab krusei PCR NOT DETECTED (Not Detect); Trichomonas vaginalis PCR NOT DETECTED (Not Detect)
== END 2024-05-20 09:29 | disposition home or self-care (01) ==
LOC: HO.LNP 09:28
PROVIDERS: PCP Nurse Practitioner Family; Visit Provider Advanced Practice Midwife
DX: Z01.419 Encounter for gynecological examination (general) (routine) without abnormal findings (principal); Z11.3 Encounter for screening for infections with a predominantly sexual mode of transmission; A59.9 Trichomoniasis, unspecified; R87.620 Atypical squamous cells of undetermined significance on cytologic smear of vagina (ASC-US); R87.820 Cervical low risk human papillomavirus (HPV) DNA test positive; B97.7 Papillomavirus as the cause of diseases classified elsewhere
CPT/HCPCS: 0352U; 87491; 87591; 87624; 88175

== ENCOUNTER 2024-06-05 14:28 | Outpatient (REF) | payer OTHER, SELFPAY ==
[2024-06-06 13:06] LABS: Bacterial Vaginosis PCR NEGATIVE (Negative); Candida Group PCR NOT DETECTED (Not Detect); Candida glab krusei PCR NOT DETECTED (Not Detect); Trichomonas vaginalis PCR NOT DETECTED (Not Detect)
[2024-06-06 13:40] LABS: CT PCR NOT DETECTED (Not Detect.); NG PCR NOT DETECTED (Not Detect.)
== END 2024-06-05 14:29 | disposition home or self-care (01) ==
LOC: HO.LNP 14:28
PROVIDERS: PCP Nurse Practitioner Family; Visit Provider Obstetrics & Gynecology
DX: Z20.2 Contact with and (suspected) exposure to infections with a predominantly sexual mode of transmission (principal); Z11.3 Encounter for screening for infections with a predominantly sexual mode of transmission
CPT/HCPCS: 0352U; 87491; 87591

== ENCOUNTER 2024-06-05 14:28 | Outpatient (AMB) | payer OTHER, SELFPAY ==
--- NOTE | 2024-06-05 14:32 | MHC.OFFVIS ---
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 [facility] Medical History Concern about STD in female without diagnosis Chronic back pain Surgical History H/O esophagogastroduodenoscopy No pertinent past surgical history Family History Father History of back surgery Mother Depression History of back surgery Brother No problems noted. Brother No problems noted. Sister No problems noted. Social History Housing: House Alcohol intake: current Alcohol intake frequency: a few times a week Patient Tobacco Use Status: Never used Tobacco e-Cigarette/Vaping Use: Never Used Current occupational status: employed Gender identity: Female Cognitive needs: No Hearing needs: No Vision needs: No Female Reproductive History Menstrual Age of Menarche: 14 Review of Systems Const All systems reviewed & are unremarkable except as noted in HPI and below Physical Exam Vital Signs: BMI result Body Mass Index 24.0 General: Yes no CVA tenderness External Female Exam: normal external appearance and normal appearance of the urethra Speculum Exam - Vagina: normal appearance of the vagina, normal palpation, no lesions and no masses Speculum Exam - Cervix: normal appearance of the cervix, normal palpation, no lesions, no masses and nontender Bimanual exam- vagina & uterus: normal bimanual exam, normal palpation, uterine size normal, normal palpation, uterine shape normal, No Cervical tenderness present and non-tender Bimanual Exam- Adnexa, other: normal adnexae Back/Spine/Pelvis Back: no CVA tenderness Assessment & Plan Assessment & Plan (1) ASCUS with positive high risk HPV cervical: Code(s): R87.610 - Atypical squamous cells of undetermined significance on cytologic smear of cervix (ASC-US); R87.810 - Cervical high risk human papillomavirus (HPV) DNA test positive Category: Medical Plan: Discussed with the patient the result of her abnormal pap, its significance, risk of progression, persistence, and regression. the false positive/negative rate of a Pap smear as a screening test in detecting cervical cancer and the indication for a diagnostic test -colposcopy, biopsy, endocervical curettage. Instructions given the patient to schedule an appointment for colposcopy biopsy ECC within 2 weeks . The patient verbalized understanding and agreed with the plan, all questions answered. (2) Screening for STD (sexually transmitted disease): Code(s): Z11.3 - Encounter for screening for infections with a predominantly sexual mode of transmission Category: Medical Plan: STD screening tests done includes: BV panel for trichomonas, GC/CT will send patient for serology std screening for HIV, RPR, Hep b s Ag, HepC Ab. Instructions given the patient to schedule a follow-up appointment for repeat serology screen in 6 months for possible false negatives. Orders: Orders HIV Ab/Ag Today Z20.2 - Contact with and (suspected) exposure to infections with a predominantly sexual mode of transmission Hepatitis B Surface Antigen Today Z20.2 - Contact with and (suspected) exposure to infections with a predominantly sexual mode of transmission Hepatitis C Antibody Today Z20.2 - Contact with and (suspected) exposure to infections with a predominantly sexual mode of transmission Syphilis Screen Today Z20.2 - Contact with and (suspected) exposure to infections with a predominantly sexual mode of transmission Coding Level of Care Code Est Pt Level 3 (69434) Diagnoses ASCUS with positive high risk HPV cervical R87.610; R87.810 Screening for STD (sexually transmitted disease) Z11.3
[2024-06-05 14:43] VITALS: BMI 24.0
== END 2024-06-05 15:24 | disposition home or self-care (01) ==
PROVIDERS: PCP Nurse Practitioner Family; Visit Provider Obstetrics & Gynecology
DX: R87.610 Atypical squamous cells of undetermined significance on cytologic smear of cervix (ASC-US) (principal); R87.810 Cervical high risk human papillomavirus (HPV) DNA test positive; Z11.3 Encounter for screening for infections with a predominantly sexual mode of transmission
CPT/HCPCS: 99213

== ENCOUNTER 2024-06-15 15:43 | Outpatient (AMB) | payer OTHER, SELFPAY ==
--- NOTE | 2024-06-15 15:44 | MHC.OFFVIS ---
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 STD screen including GC/CT and BV panel were negative [facility] Medical History Concern about STD in female without diagnosis Chronic back pain Surgical History H/O esophagogastroduodenoscopy No pertinent past surgical history Family History Father History of back surgery Mother Depression History of back surgery Brother No problems noted. Brother No problems noted. Sister No problems noted. Social History Housing: House Alcohol intake: current Alcohol intake frequency: a few times a week Patient Tobacco Use Status: Never used Tobacco e-Cigarette/Vaping Use: Never Used Current occupational status: employed Gender identity: Female Cognitive needs: No Hearing needs: No Vision needs: No Female Reproductive History Menstrual Age of Menarche: 14 Review of Systems Const All systems reviewed & are unremarkable except as noted in HPI and below Reports as per HPI and Reports no additional complaints GI Reports no additional complaints Reports no additional complaints Physical Exam Vital Signs: Last Vital Signs BP 118/74 06/15/24 15:48 BMI result Body Mass Index 24.0 Office Procedures Colposcopy Colposcopy: Pre-Procedure Counseling: Before beginning the procedure, I conducted comprehensive counseling with the patient. We thoroughly discussed the procedure itself, including its details, alternatives, and all associated risks. This included but not limited to the following complications such as bleeding, infection, and injury to the vagina, bladder, and vessels, as well as the potential need for transfusion with all its associated risks. Subsequently, the patient sign the consent. Pap smear result: Ascus/HPV positive. Urine test in office = Negative Procedure: During the procedure, the following steps were performed: A speculum was inserted, and acetic acid was applied. Colposcopy was conducted, allowing visualization of the transformation zone. Acetowhite lesions were identified at the 6+11 o'clock position. Cervical biopsies were obtained from the 6+11 o'clock position, followed by an endocervical curettage (ECC). Vaginoscopy of the upper vagina revealed no evidence of aceto-white lesions. Hemostasis was achieved using Monsel solution, and the patient tolerated the procedure well. Post-Procedure Instructions: The patient was advised to promptly contact the office or the after hours answering service or go to the emergency room if experiencing a temperature exceeding 100.4?F, abdominal pain, nausea/vomiting, or bleeding. Additionally, the patient was instructed to abstain from vaginal intercourse and bathtub use. The patient confirmed understanding of these instructions. Discharge Instructions: The patient was instructed to schedule a follow-up appointment in 2 weeks for further evaluation and management. Please note that this note was generated using a voice recognition program, and errors may have occurred during crossbar frame wirer. [id number] of cervix including upper vagina with biopsy and ECC Procedure code (CPT) selection complete Results AMB Test Urine AMB Test Urine Negative Last Edit by Shara Barba CMA on 06/15/24 15:56 Assessment & Plan Assessment & Plan (1) ASCUS with positive high risk HPV cervical: Code(s): R87.610 - Atypical squamous cells of undetermined significance on cytologic smear of cervix (ASC-US); R87.810 - Cervical high risk human papillomavirus (HPV) DNA test positive Category: Medical Plan: Colposcopy done, see procedure Orders: Orders AMB Colposcopy Today R87.610 - Atypical squamous cells of undetermined significance on cytologic smear of cervix (ASC-US), R87.810 - Cervical high risk human papillomavirus (HPV) DNA test positive Coding Level of Care Code Procedure Only Diagnoses ASCUS with positive high risk HPV cervical R87.610; R87.810 CPT Codes Colposcopy - CPT: 30365-[id number] of cervix including upper vagina with biopsy and ECC ([id number])
[2024-06-15 15:48] VITALS: BP 118/74; BMI 24.0
== END 2024-06-15 16:02 | disposition home or self-care (01) ==
LOC: HO.HWS 15:43
PROVIDERS: PCP Nurse Practitioner Family; Visit Provider Obstetrics & Gynecology
DX: R87.610 Atypical squamous cells of undetermined significance on cytologic smear of cervix (ASC-US) (principal); R87.810 Cervical high risk human papillomavirus (HPV) DNA test positive; Z32.02 Encounter for pregnancy test, result negative
CPT/HCPCS: 57454

== ENCOUNTER 2024-06-15 15:43 | Outpatient (REF) | payer OTHER, SELFPAY | END 2024-06-15 15:44 | disposition home or self-care (01) | LOC: HO.LNP 15:43 | PROVIDERS: PCP Nurse Practitioner Family; Visit Provider Obstetrics & Gynecology | DX: R87.610 Atypical squamous cells of undetermined significance on cytologic smear of cervix (ASC-US) (principal); R87.810 Cervical high risk human papillomavirus (HPV) DNA test positive | CPT/HCPCS: 57454; 81025; 88305 ==

== ENCOUNTER 2024-09-02 08:32 | Outpatient (REF) | payer OTHER, SELFPAY ==
[2024-09-02 10:13] LABS: Appearance Urine Clear; Color Urine Yellow; Glucose Urine UA Negative (Negative); Leukocyte Esterase Urine Negative (Negative); Nitrite Urine Negative (Negative); Specific Gravity - Urine 1.015 (1.005-1.025); UMIC TRIGGER UACC YES; Urine Blood Trace (Negative); Urine Ketones Negative (Negative); Urine Protein Negative (Neg-Trace)
[2024-09-02 10:21] LABS: Bacteria Urine Trace (None Seen); Hyaline Casts Urine 0-2 /LPF (0-2); RBC Urine 0-2 /HPF (0-2); WBC Urine 0-5 /HPF (0-5)
[2024-09-02 10:23] LABS: MANUAL DIFF FLAG NO
[2024-09-02 10:40] LABS: Basophils Percent Auto 0.3 % (0-2); Eosinophils Absolute Auto 0.1 X10*3/uL (0.0-0.4); Eosinophils Percent Auto 1.5 % (0-4); Hematocrit 43.1 % (37.0-47.0); Hemoglobin 15.1 g/dl (12.0-16.0); Imm Gran Abs Auto 0.03 X10*3/uL (0.00-0.03); Imm Gran Pct Auto 0.3 % (0.0-0.4); Lymphocytes Absolute Auto 1.3 X10*3/uL (1.2-4.9); Lymphocytes Percent Auto 14.6 % (20-40); Mean Corpuscular Hemoglobin 34.7 pg (27.0-33.0); Mean Corpuscular Volume 99.1 fL (80.0-98.0); Mean Platelet Volume 10.9 fL (9.4-12.3); Monocytes Absolute Auto 0.7 X10*3/uL (0.1-1.2); Monocytes Percent Auto 8.3 % (2-11); Neutrophils Absolute Auto 6.7 x10*3/uL (2.0-8.3); Platelet Count 224 X10*3/uL (160-400); Red Blood Count 4.35 X10*6/uL (4.20-5.50); Red Cell Distribution Width 12.3 % (11.0-16.0); White Blood Count 8.9 X10*3/uL (4.8-10.8)
[2024-09-02 11:12] LABS: Alanine Aminotransferase 21 U/L (0-31); Albumin Level 4.4 g/dL (3.5-5.0); Alkaline Phosphatase 74 U/L (39-117); Anion Gap 9 (12-20); Aspartate Amino Transferase 22 U/L (5-31); Bilirubin Total 0.5 mg/dL (0.0-1.0); Blood Urea Nitrogen 8 mg/dL (9-16); Calcium 9.4 mg/dL (8.4-10.2); Carbon Dioxide 27 mmol/L (22-29); Chloride 108 mmol/L (96-108); Cholesterol 157 mg/dL (<200); Estimated Glomerular Filt Rate > 60; Glucose Fasting 88 mg/dL (60-99); HDL Cholesterol 78 mg/dL (>40); LDL Cholesterol Calculated 74 mg/dL (<100); Potassium 4.6 mmol/L (3.3-5.1); Sodium 139 mmol/L (135-145); Total Protein 7.4 g/dL (6.5-8.0); Triglycerides 29 mg/dL (<150)
== END 2024-09-02 08:33 | disposition home or self-care (01) ==
LOC: HO.HMGCLDS 08:32
PROVIDERS: PCP Nurse Practitioner Family; Visit Provider Nurse Practitioner Family
DX: Z00.00 Encounter for general adult medical examination without abnormal findings (principal); F41.9 Anxiety disorder, unspecified
CPT/HCPCS: 36415; 80053; 80061; 81001; 84443; 85025; 96127

== ENCOUNTER 2024-09-02 08:32 | Outpatient (AMB) | payer OTHER, SELFPAY ==
--- NOTE | 2024-09-02 08:37 | MHC.PC.OV ---
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: No Accompanied by: Self / Same As Patient Allergies No Known Allergies Allergy (Verified 09/02/24 09:09) Medication List - Last Reconciled 09/02/24 by FARHAN Neely No Known Home Meds Tobacco use date assessed: 09/02/24 Dental Screening Dental Screen Date: 09/02/24 Did you have a dental visit in the last 12 months?: Yes Did you have a dental problem in the last 6 months where you did not have access to dental care?: No Was dental information given to patient?: Patient has dentist HPI Annual PE HPI Details History of Present Illness The patient is a 28-year-old female presenting with a physical exam and mentioning anxiety and intermittent panic attacks. She experiences these episodes sporadically, finding them distressing but denies any suicidal or homicidal ideation. The patient has not previously sought significant treatment for anxiety but is now seeking to manage these symptoms. She has been prescribed hydroxyzine to help control the anxiety and is to report back through the portal on the medication's efficacy. 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 - Respiratory: Denies shortness of breath. - Gastrointestinal: Denies constipation, diarrhea, blood in the stool. - Genitourinary: Denies urinary problems. Physical Exam General: Cooperative, healthy appearing, comfortable, no acute distress and well developed Orientation: Patient oriented x3 Limitations: No limitations Head: Normal to inspection Ears: Hearing grossly normal bilaterally Nose: Normal external nose present Face and sinus: Normal facial exam Eyes: Appearance normal, both eyes and all related structures Neck: Normal visual inspection and Yes full ROM Respiratory: Normal respiratory effort and able to speak in complete sentences. Clear to auscultation bilaterally Cardiovascular: Regular rate and rhythm. Normal S1 and S2 GI: Normal to inspection. Soft to palpation and nontender Skin: No rashes or lesions noted Neuro: Patient oriented x3 Extremities: Normal to inspection Results Plan To manage the patient's anxiety and panic attacks, I have prescribed hydroxyzine, which is expected to provide relief from her stress and panic episodes. The patient will communicate the effectiveness of the medication through the portal. This will guide future treatment decisions based on her feedback and response to hydroxyzine. Discussion Notes I discussed with the patient the possibility of using hydroxyzine to manage her anxiety and panic attacks due to its anxiolytic properties. We reviewed how to use the medication effectively and the importance of monitoring her response. I emphasized reporting her experience via our medical portal for ongoing assessment. Our conversation included potential benefits such as relief from anxiety symptoms, with minimal risk of adverse effects, making hydroxyzine a suitable initial choice. Future considerations for altering her treatment will depend on how well the medication addresses her symptoms. Patient Instructions - Take hydroxyzine as directed to help manage anxiety and panic attacks. - Monitor how you feel while using the medication and note any changes. - Report back through the medical portal regarding how the medication impacts your symptoms. - If you experience any worsening symptoms or have concerns, seek care sooner. - Continue with any previously established healthcare routines and report new symptoms as discussed. [facility] Medical History Concern about STD in female without diagnosis Chronic back pain Surgical History H/O esophagogastroduodenoscopy No pertinent past surgical history Family History Father History of back surgery Mother Depression History of back surgery Brother No problems noted. Brother No problems noted. Sister No problems noted. Social History Housing: House Alcohol intake: current Alcohol intake frequency: a few times a week Patient Tobacco Use Status: Never used Tobacco e-Cigarette/Vaping Use: Never Used Current occupational status: employed Gender identity: Female Cognitive needs: No Hearing needs: No Vision needs: No Female Reproductive History Menstrual Age of Menarche: 14 Questionnaire PHQ-9 Over the last 2 weeks, how often have you been bothered by any of the following problems? 1. Little interest or pleasure in doing things: not at all 2. Feeling down, depressed, or hopeless: not at all 3. Trouble falling or staying asleep, or sleeping too much: more than half the days 4. Feeling tired or having little energy: more than half the days 5. Poor appetite or overeating: not at all 6. Feeling bad about yourself - or that you are a failure or have let yourself or your family down: not at all 7. Trouble concentrating on things, such as reading the newspaper or watching television: not at all 8. Moving or speaking so slowly that other people could have noticed. Or the opposite - being so fidgety or restless that you have been moving around a lot more than usual: not at all 9. Thoughts that you would be better off or of hurting yourself in some way: not at all Total score: 4 Depression Screening Interpretation: Negative Depression Screening Done: Yes 77056 - PHQ-9 Billing: Yes Source: Developed by Drs. Bal Yeung, Ernestina Iniguez, Cameron Salgado and colleagues, with an educational lizzy from [employer]. Thrive Questionnaire Date Thrive assessed: 09/02/24 I am a: Patient What is your living situation today?: I have a steady place to live Within the past 12 months, did the food you bought not last and you didn't have the money to get more?: Never true Within the past 12 months, did you worry whether your food would run out before you got money to buy more?: Never true Do you have trouble paying for medicines?: Yes Do you have trouble getting transportation to medical appointments?: No Do you have trouble paying your heating and electricity bill?: No Do you have trouble taking care of your child, family member or friend?: No Do you have trouble with day-to-day activities such as bathing, preparing meals, shopping, managing finances, etc.?: No Are you currently unemployed and looking for a job?: No Are you interested in more education?: No Please select the resources that you would like help with: None Currently or been in a relationship where the following occur: No concerns reported THRIVE Score: 0 AUDIT C Alcohol Use Questionnaire (AUDIT-C) 1. How often do you have a drink containing alcohol?: 2-3 times a week 2. How many drinks containing alcohol do you have on a typical day when you are drinking?: 1 or 2 3. How often do you have six or more drinks on one occasion?: Less than monthly Total Score: 4 Score Reviewed/Action Taken: Yes NIMA-7 AMB Questionnaire NIMA-7 Date NIMA - 7 assessed: 09/02/24 Feeling nervous, anxious, or on edge: 1 = Several days Not being able to stop or control worryin = Not at all Worrying too much about different things: 0 = Not at all Trouble relaxin = Not at all Being so restless that it is hard to sit still: 0 = Not at all Becoming easily annoyed or irritable: 1 = Several days Feeling afraid as if something awful might happen: 0 = Not at all Total NIMA-7 score (0-4 normal; 5-9 mild; 10-14 moderate; 15-21 severe): 2 Source: Developed by Drs. Bal Yeung, Ernestina Iniguez, Cameron Salgado and colleagues, with an educational lizzy from [employer]. NIMA-7 Assessment Billing NIMA-7 Assessment Tool: NIMA-7 Assessment 27086 Physical exam (Primary Care) Vital Signs: Last Vital Signs Temp 97.9 F 09/02/24 08:38 Pulse 92 09/02/24 08:38 BP 120/76 09/02/24 08:38 Pulse Ox 98 09/02/24 08:38 BMI result Body Mass Index 24.9 Tobacco/Smoking Status: Tobacco use Status Tobacco use date assessed 09/02/24 09/02/24 08:44 Patient Tobacco Use Status Never used Tobacco 09/02/24 08:44 e-Cigarette/Vaping Use Never Used 09/02/24 08:44 PHQ-9: PHQ-9 Score PHQ-9: Total score 4 09/02/24 08:44 Depression Screening Interpretation: Negative Thrive Assessment: Date of Thrive Assessment Date Thrive assessed 09/02/24 09/02/24 08:44 Currently or been in a relationship where the following occur: No concerns reported Coding Level of Care Code Est Pt Prev Care 18-39y(96245) Diagnoses Physical exam Z00.00 Additional Codes NIMA-7 Assessment Billing - NIMA-7 Assessment Tool: NIMA-7 Assessment 43748 ([id number]) PHQ-9 - 43989 - PHQ-9 Billing: Yes ([id number]) Assessment & Plan Assessment & Plan (1) Physical exam: Code(s): Z00.00 - Encounter for general adult medical examination without abnormal findings Category: Medical Plan . Orders: Orders Complete Blood Count Auto Diff Today Z00.00 - Encounter for general adult medical examination without abnormal findings Comprehensive [place]. Panel Fast Today Z00.00 - Encounter for general adult medical examination without abnormal findings UA CC w/rflx Micro + Cult Today Z00.00 - Encounter for general adult medical examination without abnormal findings Lipid Panel Today Z00.00 - Encounter for general adult medical examination without abnormal findings TSH reflex Free T4 Today Z00.00 - Encounter for general adult medical examination without abnormal findings Medications: New hydroxyzine HCl 25 mg PO BID 20 days PRN 40 tabs 0RF anxiety
[2024-09-02 08:38] VITALS: BP 120/76; PULSE 92; TEMP 36.6; O2SAT 98; BMI 24.9
--- OUTSIDE RECORDS SUMMARY | 2024-09-02 09:06 | XMS_ITS | Patient Health Record ---
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 . B/L achilles tendo nitis 2-3x/week Active Social History Tobacco Use: Social History Observation Description Date Details (start date - stop date) Never Smoker NA - NA Tobacco Use/Smoking Question Answer Notes Are you [...] Are you an other tobacco user? 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 [place], [place] [address] [phone] [id number] Wes Yeung Self - patient is the insured Medical (General) History Medical History History ICD Code Back pain Anxiety Surgical History Surgery Date(Month/Year) endoscopy
== END 2024-09-02 09:46 | disposition home or self-care (01) ==
PROVIDERS: PCP Nurse Practitioner Family; Visit Provider Nurse Practitioner Family
DX: Z00.00 Encounter for general adult medical examination without abnormal findings (principal)

== ENCOUNTER 2024-09-14 07:46 | Outpatient (REF) | payer OTHER, SELFPAY ==
[2024-09-14 10:23] LABS: MANUAL DIFF FLAG NO
[2024-09-14 10:30] LABS: Basophils Percent Auto 0.4 % (0-2); Eosinophils Absolute Auto 0.4 X10*3/uL (0.0-0.4); Eosinophils Percent Auto 6.6 % (0-4); Hematocrit 39.8 % (37.0-47.0); Hemoglobin 13.8 g/dl (12.0-16.0); Imm Gran Abs Auto 0.03 X10*3/uL (0.00-0.03); Imm Gran Pct Auto 0.5 % (0.0-0.4); Lymphocytes Absolute Auto 1.5 X10*3/uL (1.2-4.9); Lymphocytes Percent Auto 26.9 % (20-40); Mean Corpuscular HGB Conc 34.7 g/dl (31.0-35.0); Mean Corpuscular Hemoglobin 34.4 pg (27.0-33.0); Mean Corpuscular Volume 99.3 fL (80.0-98.0); Mean Platelet Volume 11.1 fL (9.4-12.3); Monocytes Absolute Auto 0.6 X10*3/uL (0.1-1.2); Monocytes Percent Auto 10.7 % (2-11); Neutrophils Absolute Auto 3.1 x10*3/uL (2.0-8.3); Neutrophils Percent Auto 54.9 % (45-73); Platelet Count 231 X10*3/uL (160-400); Red Blood Count 4.01 X10*6/uL (4.20-5.50); Red Cell Distribution Width 12.3 % (11.0-16.0); White Blood Count 5.6 X10*3/uL (4.8-10.8)
[2024-09-14 10:53] LABS: Appearance Urine Clear; Color Urine Yellow; Glucose Urine UA Negative (Negative); Leukocyte Esterase Urine Negative (Negative); Nitrite Urine Negative (Negative); UMIC TRIGGER UACC YES; Urine Blood Trace (Negative); Urine Ketones Negative (Negative); Urine Protein Negative (Neg-Trace)
[2024-09-14 11:03] LABS: Bacteria Urine None Seen (None Seen); Hyaline Casts Urine 0-2 /LPF (0-2); WBC Urine 0-5 /HPF (0-5)
[2024-09-14 11:05] LABS: Iron 177 mcg/dL (30-160); Percent Iron Saturation 63 % (15-50); Total Iron Binding Capacity 280 mcg/dL (228-428); Unsaturated Iron Binding 103 ug/dL
[2024-09-14 11:20] LABS: Folate 6.3 ng/mL (> or = 4.0); Vitamin B12 300 pg/mL (200-900)
[2024-09-14 11:23] LABS: Ferritin 43 ng/mL (10-122)
== END 2024-09-14 07:47 | disposition home or self-care (01) ==
LOC: HO.HMGCLDS 07:46
PROVIDERS: PCP Nurse Practitioner Family; Visit Provider Nurse Practitioner Family
DX: Z00.00 Encounter for general adult medical examination without abnormal findings (principal); D64.9 Anemia, unspecified
CPT/HCPCS: 36415; 81001; 82607; 82728; 82746; 83540; 85025

== ENCOUNTER 2024-09-17 13:08 | Outpatient (AMB) | payer OTHER, SELFPAY ==
--- NOTE | 2024-09-17 13:09 | A.OFFVIS_ITS ---
Vital Signs 09/17/24 13:13 Height 5 ft 2 in Weight 136 lb BMI 24.9 BP 120/70 Intake Visit Reasons: vaginitis/STD testing Exchange Operator Required: No Exchange Operator Services: Exchange Operator Present Information Interpreted: clinical only Family Independence Case Manager: Family Independence Case Manager Present Allergies No Known Allergies Allergy (Verified 09/17/24 13:15) Medication List - Last Reconciled 09/17/24 by Kimberly Lindsey CNM hydroxyzine HCl 25 mg PO BID PRN 20 days Is last menstrual period known: Yes Last menstrual period: 09/11/24 HPI HPI vaginitis/STD testing: Details: Patient is here because she wants to get checked for STDs she just finished her. And she just felt a little uncomfortable like there was paper stuck between her labia or something it is not itchy or inflamed now. Periods started on 14 and then yesterday. She had sex with a previous partner 1 time since her last full STI chest so she is paranoid and wants to get checked because of her past experience having trichomoniasis and knowing it for awhile she just wants to be sure she would like to get blood work done 2 to be on the safe side she recently got blood work done for her primary care provider was told everything is pretty okay and she had high iron. She is not planning on being sexually active for the moment and is resolved to be more choosy in choice of partners. 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 She has an appointment to see me next May for her Pap smear. She is currently abstinent and that is her current plan. [facility] Medical History Concern about STD in female without diagnosis Chronic back pain Surgical History H/O esophagogastroduodenoscopy No pertinent past surgical history Family History Father History of back surgery Mother Depression History of back surgery Brother No problems noted. Brother No problems noted. Sister No problems noted. Social History Housing: House Alcohol intake: current Alcohol intake frequency: a few times a week Patient Tobacco Use Status: Never used Tobacco e-Cigarette/Vaping Use: Never Used Current occupational status: employed Gender identity: Female Cognitive needs: No Hearing needs: No Vision needs: No Female Reproductive History Menstrual Age of Menarche: 14 Duration of menses: 3-5 days Date of last menstrual period: 09/11/24 control method: none Total pregnancies: 0 Date of last pap smear: 05/21/24 (ASCUS,hpv-) History of abnormal pap smear: Yes Physical Exam Vital Signs: Last Vital Signs BP 120/70 09/17/24 13:13 BMI result Body Mass Index 24.9 Other: Vagina pink clear scant clear pink discharge consistent with end of menses cervix nulliparous pink smooth healthy appearing no abnormal discharge appreciated today, no inflammation evident either. External Female Exam: normal external appearance and normal appearance of the urethra Speculum Exam - Vagina: normal appearance of the vagina and normal vaginal discharge Speculum Exam - Cervix: normal appearance of the cervix and Cervical os closed Results Reviewed Results Reviewed: elle: Cassidy Yeung Age/Sex: 28/F Attending: Kimberly Lindsey CNM : 1995 Submitted by: Kimberly Lindsey CNM Copies to: Herm[facility] MR #: [id number] Status: DEP REF Collected: 05/20/24 Location: [facility] Received: 05/21/24 Interpretation ABNORMAL PAP TEST. Satisfactory for evaluation, with atypical squamous cells of undetermined significance (ASC-US). HPV High Risk: Positive HPV Genotyping 16: Negative HPV Genotyping 18: Negative Clinical Information LMP: Unknown date Previous PAP test: 2019, WNL Material Received ThinPrep-Cervical Copies To [facility] [id number] Kimberly Lindsey CNM [facility] [address] [place] [address], [address] [place] [address] Electronically Signed By: Brett Olmos MD 05/29/24 1211 As of April 22, 2024, the technical services to include automated prescreening performed by the ThinPrep Imaging System, PAP screening and HPV testing will be performed at [facility] (CLIA #[id number]), [address] [place] [address]. Testing for HPV was performed using the Carlo TIFFANI 6800 system. The presence of HPV in the female genital tract is associated with a number of diseases, including cervical carcinoma. The HPV DNA high risk pool tests for HPV 31, 33, 35, 39, 45, 51, 52, 56, 58, 59, 66 and 68. The testing for HPV 16 and 18 genotypes has also been performed. A positive result indicates detection of nucleic acid sequences from one or more subtypes, whereas a negative result indicates such sequences were not detected. Patient: Cassidy Yeung Age/Sex: 28/F MR#: [id number] Page 1 of 2 Name: Cassidy Yeung Age/Sex: 28/F Attending: Moshe Buenrostro MD : 1995 Submitted by: Moshe Buenrostro MD [facility] #: [id number] Status: DEP REF Collected: 06/15/24 Location: [facility] Received: 06/16/24 Diagnosis A. Endocervix, curettage: Inflamed polypoid endocervical mucosa and squamous epithelium with reactive changes. B. Cervix, 6 o'clock, biopsy: Inflamed cervical transformation zone mucosa with reactive changes. C. Cervix, 11 o'clock, biopsy: Squamous mucosa within normal limits; no endocervical epithelium identified. COMMENT: The patient's recent Pap/cytology specimen ([id number]; ASCUS with positive HR HPV) is reviewed; the atypical cells on the Pap slide are not represented in the current samples. Clinical History ASCUS with positive HPV cervical Microscopic Description A-C. Microscopic sections reviewed. Material Received A. ECC B. Cx bx 6 o'clock C. Cx bx 11 o'clock Gross Description Received in three parts. Part A: Received in formalin labeled ?ECC? is a 1.0 x 0.6 x 0.2 cm aggregate of predominantly mucus, blood and minute shards of pepe-brown tissue, submitted in toto in a cassette labeled A. Part B: Received in formalin labeled ?cx bx 6? is a 0.35 cm rubbery, hernández-white wedge-shaped fragment of mucosa, submitted in toto in a cassette labeled B. Part C: Received in formalin labeled ?cx bx 11? is a 0.3 cm hernández-pepe rubbery wedge-shaped fragment of mucosa, submitted in toto in a cassette labeled C. CED Patient: Cassidy Yeung Age/Sex: 28/F MR#: [id number] Page 1 of 2 Surgical Pathology [id number] Copies To Hermes Ware [facility] [place], [address] [address] Moshe Buenrostro MD [facility] [address] [place] [address] NOTE: Unless otherwise stated, all tissue is formalin-fixed and paraffin- embedded. Some or all of the immunohistochemical tests reported herein may have been developed and their performance Assessment & Plan Assessment & Plan (1) Vaginal discharge: Comment: Nothing abnormal evident today 03/13/2024. Code(s): N89.8 - Other specified noninflammatory disorders of vagina Category: Medical (2) Screen for STD (sexually transmitted disease): Code(s): Z11.3 - Encounter for screening for infections with a predominantly sexual mode of transmission Category: Medical Plan Patient is here because she wants to get checked for STDs she just finished her. And she just felt a little uncomfortable like there was paper stuck between her labia or something it is not itchy or inflamed now. Periods started on 14 and then yesterday. She had sex with a previous partner 1 time since her last full STI chest so she is paranoid and wants to get checked because of her past experience having trichomoniasis and knowing it for awhile she just wants to be sure she would like to get blood work done 2 to be on the safe side she recently got blood work done for her primary care provider was told everything is pretty okay and she had high iron. She is not planning on being sexually active for the moment and is resolved to be more choosy in choice of partners. 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 She has an appointment to see me next May for her Pap smear. She is currently abstinent and that is her current plan. We reviewed all of her recent past results including the 2- test of cure for trich after the positive in May. Reviewed her ascus with positive HPV Pap from May Reviewed the negative colposcopy results from May. Patient has a appointment for follow-up annual exam with Pap smear next May. Discussed plan for abstinence and consideration for control methods and she will think about it. Testing done during the visit for gonorrhea chlamydia trich bacterial vaginosis and yeast discharge appears thin clear scant consistent with end of menses. Testing reordered for HIV hep B hep C and syphilis patient is on the portal and will look for her results there. Orders: Orders Bacterial Vaginosis Panel Today N89.8 - Other specified noninflammatory disorders of vagina Hepatitis C Antibody Today N89.8 - Other specified noninflammatory disorders of vagina, Z11.3 - Encounter for screening for infections with a predominantly sexual mode of transmission HIV Ab/Ag Today N89.8 - Other specified noninflammatory disorders of vagina, Z11.3 - Encounter for screening for infections with a predominantly sexual mode of transmission CT NG by PCR Today N89.8 - Other specified noninflammatory disorders of vagina, Z20.2 - Contact with and (suspected) exposure to infections with a predominantly sexual mode of transmission Hepatitis B Surface Antigen Today N89.8 - Other specified noninflammatory disorders of vagina, Z11.3 - Encounter for screening for infections with a predominantly sexual mode of transmission Syphilis Screen Today N89.8 - Other specified noninflammatory disorders of vagina, Z11.3 - Encounter for screening for infections with a predominantly sexual mode of transmission Coding Level of Care Code Est Pt Level 3 (45869) Diagnoses Vaginal discharge N89.8 Screen for STD (sexually transmitted disease) Z11.3
[2024-09-17 13:13] VITALS: BP 120/70; BMI 24.9
--- OUTSIDE RECORDS SUMMARY | 2024-09-17 15:40 | XMS_ITS | Patient Health Record ---
Author Organization 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 Plan Of Treatment Pending Test Test Name Order Date X ray : Foot, left 3V 07/31/2022 X ray : Foot, right 3V 07/31/2022 X ray : Foot, right 3V 2021 Insurance Providers Payer Name Payer Address Payer Phone Subscriber Number Group Number Insured Name Patient Relationship to Insured Coverage Start Date Coverage End Date [facility] [address] [facility] [place], [place] [address] [phone] [id number] Wes Yeung Self - patient is the insured Medical (General) History Medical History History ICD Code Back pain Anxiety Surgical History Surgery Date(Month/Year) endoscopy
== END 2024-09-17 13:53 | disposition home or self-care (01) ==
LOC: HO.HWSM 13:09
PROVIDERS: PCP Nurse Practitioner Family; Visit Provider Advanced Practice Midwife
DX: N89.8 Other specified noninflammatory disorders of vagina (principal); Z11.3 Encounter for screening for infections with a predominantly sexual mode of transmission
CPT/HCPCS: 99213

== ENCOUNTER 2024-09-17 13:08 | Outpatient (REF) | payer OTHER, SELFPAY ==
[2024-09-17 17:31] LABS: Appearance Urine Clear; Color Urine Yellow; Glucose Urine UA Negative (Negative); Leukocyte Esterase Urine Negative (Negative); Nitrite Urine Negative (Negative); Urine Blood Negative (Negative); Urine Ketones Negative (Negative); Urine Protein Negative (Neg-Trace)
[2024-09-18 04:50] LABS: CT PCR NOT DETECTED (Not Detect.); NG PCR NOT DETECTED (Not Detect.)
[2024-09-18 08:18] LABS: HBsAGNum1 0.22 S/CO (0.00-0.99); HBsAGNum1 0.29 S/CO (0.00-0.99); HIV AB/AG Nonreactive (Nonreactive); HIV Num 1 0.06 S/CO (0.00-0.99); HIV Num 1 0.09 S/CO (0.00-0.99); Hepatitis B Surface Antigen Negative (Negative); ~HepC Num1 0.27 S/CO (0.00-0.79); ~HepC Num1 0.28 S/CO (0.00-0.79); ~Hepatitis C Antibody Nonreactive (Nonreactive)
[2024-09-18 08:31] LABS: Syphilis Screen Nonreactive (Nonreactive)
[2024-09-18 08:37] LABS: Syphilis Screen Nonreactive (Nonreactive)
[2024-09-18 10:46] LABS: Bacterial Vaginosis PCR POSITIVE (Negative); Candida Group PCR NOT DETECTED (Not Detect); Candida glab krusei PCR NOT DETECTED (Not Detect); Trichomonas vaginalis PCR NOT DETECTED (Not Detect)
== END 2024-09-17 13:09 | disposition home or self-care (01) ==
LOC: HO.LAB 13:08
PROVIDERS: Obstetrics & Gynecology; PCP Nurse Practitioner Family; Visit Provider Advanced Practice Midwife
DX: Z00.00 Encounter for general adult medical examination without abnormal findings (principal); N89.8 Other specified noninflammatory disorders of vagina; Z20.2 Contact with and (suspected) exposure to infections with a predominantly sexual mode of transmission
CPT/HCPCS: 36415; 81003; 81515; 86780; 86803; 87340; 87389; 87491; 87591

== ENCOUNTER 2024-09-17 14:01 | Outpatient (REF) | payer OTHER, SELFPAY | END 2024-09-17 14:02 | disposition home or self-care (01) | LOC: HO.HHCL 14:01 | PROVIDERS: Visit Provider Nurse Practitioner Family | DX: Z13.89 Encounter for screening for other disorder (principal) ==

== ENCOUNTER 2024-10-08 07:49 | Outpatient (REF) | payer OTHER, SELFPAY ==
--- OUTSIDE RECORDS SUMMARY | 2024-10-08 07:52 | XMS_ITS | Patient Health Record ---
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 Plan Of Treatment Pending Test Test Name Order Date X ray : Foot, left 3V 07/31/2022 X ray : Foot, right 3V 07/31/2022 X ray : Foot, right 3V 2021 Insurance Providers Payer Name Payer Address Payer Phone Subscriber Number Group Number Insured Name Patient Relationship to Insured Coverage Start Date Coverage End Date [facility] [address] [facility] [place], [place] [address] [id number] Wes Yeung Self - patient is the insured Medical (General) History Medical History History ICD Code Back pain Anxiety Surgical History Surgery Date(Month/Year) endoscopy
[2024-10-08 10:34] LABS: Iron 130 mcg/dL (30-160); Percent Iron Saturation 49 % (15-50); Total Iron Binding Capacity 265 mcg/dL (228-428); Unsaturated Iron Binding 135 ug/dL
[2024-10-08 10:50] LABS: Ferritin 74 ng/mL (10-122)
== END 2024-10-08 07:50 | disposition home or self-care (01) ==
LOC: HO.HMGCLDS 07:49
PROVIDERS: PCP Nurse Practitioner Family; Visit Provider Nurse Practitioner Family
DX: D64.9 Anemia, unspecified (principal)
CPT/HCPCS: 36415; 82728; 83540

== ENCOUNTER 2024-12-24 14:44 | Outpatient (REF) | payer OTHER, SELFPAY ==
[2024-12-24 17:18] LABS: HCG Quantitative 17854 mIU/mL
[2024-12-24 18:26] LABS: Bacterial Vaginosis PCR POSITIVE (Negative); Candida Group PCR NOT DETECTED (Not Detect); Candida glab krusei PCR NOT DETECTED (Not Detect); Trichomonas vaginalis PCR NOT DETECTED (Not Detect)
[2024-12-24 18:58] LABS: CT PCR NOT DETECTED (Not Detect.); NG PCR NOT DETECTED (Not Detect.)
== END 2024-12-24 14:45 | disposition home or self-care (01) ==
LOC: HO.LAB 14:44
PROVIDERS: PCP Nurse Practitioner Family; Visit Provider Advanced Practice Midwife
DX: R10.2 Pelvic and perineal pain (principal); Z34.90 Encounter for supervision of normal pregnancy, unspecified, unspecified trimester; N89.8 Other specified noninflammatory disorders of vagina
CPT/HCPCS: 81003; 81025; 81515; 84702; 87086; 87088; 87186; 87491; 87591

== ENCOUNTER 2024-12-24 15:05 | Outpatient (REF) | payer OTHER, SELFPAY | END 2024-12-24 15:06 | disposition home or self-care (01) | LOC: HO.LNP 15:05 | PROVIDERS: Visit Provider Advanced Practice Midwife | DX: Z13.89 Encounter for screening for other disorder (principal) ==

== ENCOUNTER 2024-12-24 15:35 | Outpatient (REF) | payer OTHER, SELFPAY ==
--- NOTE | ~2024-12-24 | US_ITS ---
EXAMINATION: US OBSTETRICAL ULTRASOUND CLINICAL INFORMATION: Positive test COMPARISON: Pelvic ultrasound December 15, 2020 LMP: 11/15/2024. Gestational age by maternal dates is 5 weeks 4 days. Estimated date of delivery by maternal dates is 08/22/2025. TECHNIQUE: Grayscale and color Doppler imaging was performed through the uterus and adnexa. FINDINGS: There is a single intrauterine gestational sac with visible yolk sac without a visualized fetus. Double decidua sign is present. Mean sac diameter is 13 mm. There is no significant subchorionic hemorrhage or hematoma. Gestational age by mean sac diameter: 6 weeks 0 days MARCELA (estimated date of delivery): 08-19-2025 MATERNAL ADNEXA: The right maternal ovary measures 2.7 x 2.1 x 1.5 cm. The left maternal ovary measures 3.2 x 2.1 x 2.2 cm. 19 mm hypoechoic cyst/corpus luteum corpus luteum is evident. There is no significant maternal adnexal mass. No maternal pelvic ascites. US/US OB pelvic and transvaginal IMPRESSION: Intrauterine gestational sac with yolk sac, no visualized fetus with ultrasound gestational age of 5 weeks 4 days. Size and dates are concordant. Estimated date of delivery: 08/22/2025. Electronically signed by: Fantasma Funes MD 12/24/2024 04:33 PM EDT
== END 2024-12-24 15:36 | disposition home or self-care (01) ==
LOC: HO.US 15:35
PROVIDERS: PCP Nurse Practitioner Family; Visit Provider Advanced Practice Midwife
DX: Z34.90 Encounter for supervision of normal pregnancy, unspecified, unspecified trimester (principal); R10.2 Pelvic and perineal pain
CPT/HCPCS: 76801; 76817

== ENCOUNTER → 2024-12-24 15:52 | Outpatient (BNV) | payer OTHER, SELFPAY | PROVIDERS: PCP Nurse Practitioner Family; Visit Provider Radiology Diagnostic Radiology | DX: O26.841 Uterine size-date discrepancy, first trimester (principal); Z3A.01 Less than 8 weeks gestation of pregnancy | CPT/HCPCS: 76801; 76817 ==

== ENCOUNTER 2025-03-25 10:48 | Outpatient (REF) | payer OTHER, SELFPAY ==
--- OUTSIDE RECORDS SUMMARY | 2025-03-25 16:34 | XMS_ITS | Patient Health Record ---
Author Organization 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
[2025-03-25 17:47] LABS: Bacterial Vaginosis PCR POSITIVE (Negative); Candida Group PCR NOT DETECTED (Not Detect); Candida glab krusei PCR NOT DETECTED (Not Detect); Trichomonas vaginalis PCR NOT DETECTED (Not Detect)
[2025-03-25 18:16] LABS: CT PCR NOT DETECTED (Not Detect.); NG PCR NOT DETECTED (Not Detect.)
== END 2025-03-25 10:49 | disposition home or self-care (01) ==
LOC: HO.LNP 10:48
PROVIDERS: PCP Nurse Practitioner Family; Visit Provider Advanced Practice Midwife
DX: N89.8 Other specified noninflammatory disorders of vagina (principal); Z20.2 Contact with and (suspected) exposure to infections with a predominantly sexual mode of transmission; Z32.02 Encounter for pregnancy test, result negative
CPT/HCPCS: 81003; 81025; 81515; 87491; 87591

== ENCOUNTER 2025-03-25 10:48 | Outpatient (AMB) | payer OTHER, SELFPAY ==
--- NOTE | 2025-03-25 10:59 | MHC.OFFVIS ---
Vital Signs 03/25/25 11:01 Height 5 ft 2 in Weight 142 lb BMI 26.0 BP 100/68 Blood Pressure Location Rt brachial Position Sitting Intake Visit Reasons: vaginal infection Intake Note: Here complaining of having alot of yellowish vaginal discharge for about 10 Plus days. wants vaginal std testing Information Interpreted: non-clinical & clinical Operations And Maintenance Supervisor: Operations And Maintenance Supervisor Present (Charleen) Accompanied by: Self / Same As Patient Allergies No Known Allergies Allergy (Verified 03/25/25 11:05) Medication List - Last Reconciled 03/25/25 by Che Jorge LPN hydroxyzine HCl 25 mg PO BID PRN 20 days Is last menstrual period known: Yes Last menstrual period: 02/28/25 Do you need a note to return to daycare/school/sports/work: Yes HPI Comments Details: Patient is here today with concerns of vaginal discharge for over 10 days yellow, increased in volume eating to wear a panty liner. Denies any odors, pelvic pain, or urinary symptoms. History of BV in the past. Currently not sexually active. Interesting in having screening blood work completed. [facility] Medical History Pelvic pain Early stage of Concern about STD in female without diagnosis Chronic back pain Surgical History H/O esophagogastroduodenoscopy No pertinent past surgical history Family History Father History of back surgery Mother Depression History of back surgery Brother No problems noted. Brother No problems noted. Sister No problems noted. Social History Housing: House Alcohol intake: current Alcohol intake frequency: a few times a week Patient Tobacco Use Status: Never used Tobacco e-Cigarette/Vaping Use: Never Used Current occupational status: employed Gender identity: Female Cognitive needs: No Hearing needs: No Vision needs: No Female Reproductive History Menstrual Age of Menarche: 14 Date of last menstrual period: 02/28/25 control method: condoms Total pregnancies: 1 Number of Living Children: 1 Date of last pap smear: 07/21/23 Review of Systems Const All systems reviewed & are unremarkable except as noted in HPI and below Physical Exam Vital Signs: Last Vital Signs BP 100/68 03/25/25 11:01 BMI result Body Mass Index 26.0 Const General: cooperative, healthy appearing and no acute distress Orientation/consciousness: patient oriented x3 GI Inspection: Yes normal to inspection Palpation (GI): Soft to palpation and Other GI palpation findings present (Nontender) Rectal Exam - Female: visual inspection normal General: Yes bladder normal to palpation External Female Exam: normal appearance of the urethra Speculum Exam - Vagina: normal appearance of the vagina, normal palpation and abnormal vaginal discharge (Yellow thin w/mucus) Speculum Exam - Cervix: normal appearance of the cervix and normal palpation Bimanual exam- vagina & uterus: normal bimanual exam, normal palpation, uterine size normal, bladder normal to palpation, normal palpation, uterine shape normal and non-tender Bimanual Exam- Adnexa, other: normal adnexae Neuro General: patient oriented x3 Results AMB Test Urine AMB Test Urine Negative Last Edit by Che Jorge LPN on 03/25/25 11:39 AMB Urinalysis, Automated UA Leukoctes Campos/uL Last Edit by Che Jorge LPN on 03/25/25 11:41 UA Nitrite Last Edit by Che Jorge LPN on 03/25/25 11:41 UA Urobilinogen mg/dL Last Edit by Che Jorge LPN on 03/25/25 11:41 UA Protein mg/dL Last Edit by Che Jorge LPN on 03/25/25 11:41 UA pH 6.5 Last Edit by Che Jorge LPN on 03/25/25 11:41 UA Blood Mal/uL Last Edit by Che Jorge LPN on 03/25/25 11:41 UA Specific Spade 1.015 Last Edit by Che Jorge LPN on 03/25/25 11:41 UA Ketone Last Edit by Che Jorge LPN on 03/25/25 11:41 UA Bilirubin mg/dL Last Edit by Che Jorge LPN on 03/25/25 11:41 UA Glucose mg/dL Last Edit by Che Jorge LPN on 03/25/25 11:41 Assessment & Plan Assessment & Plan (1) Vaginal discharge: Code(s): N89.8 - Other specified noninflammatory disorders of vagina Category: Medical Plan: BV culture and GC chlamydia obtained. Discussed concerns for chronic BV. Recommended use of women's probiotics for vaginal micro biome support. Use of condoms consistently. Healthy diet. The patient expressed understanding and agreement with the plan of care. All of her questions and concerns were addressed to the best of my ability. Annual exam scheduled May 2025. (2) Possible exposure to STD: Code(s): Z20.2 - Contact with and (suspected) exposure to infections with a predominantly sexual mode of transmission Plan Informed bled work ordered at lab to register 1st before being drawn. Await results for final plan of care. Safe sex condoms when becoming intimate. The patient expressed understanding and agreement with the plan of care. All of her questions and concerns were addressed to the best of my ability. This note is constructed using voice recognition software. While every effort has been made to ensure accuracy, design specialist errors may have been included. Orders: Orders AMB HCG Urine Test Today Z32.02 - Encounter for test, result negative AMB Urinalysis Automated Today N89.8 - Other specified noninflammatory disorders of vagina Hepatitis B Core Antibody Today Z20.2 - Contact with and (suspected) exposure to infections with a predominantly sexual mode of transmission CT NG by PCR Vag/Cerv Today Z11.3 - Encounter for screening for infections with a predominantly sexual mode of transmission HIV Ab/Ag Today Z20.2 - Contact with and (suspected) exposure to infections with a predominantly sexual mode of transmission Hepatitis C Antibody Reflex Today Z20.2 - Contact with and (suspected) exposure to infections with a predominantly sexual mode of transmission Syphilis Screen Today Z20.2 - Contact with and (suspected) exposure to infections with a predominantly sexual mode of transmission Bacterial Vaginosis Panel Today Z11.3 - Encounter for screening for infections with a predominantly sexual mode of transmission Coding Level of Care Code Est Pt Level 3 (72745) Diagnoses Vaginal discharge N89.8 Possible exposure to STD Z20.2
[2025-03-25 11:01] VITALS: BP 100/68; BMI 26.0
== END 2025-03-25 11:34 | disposition home or self-care (01) ==
LOC: HO.HWS 10:48
PROVIDERS: PCP Nurse Practitioner Family; Visit Provider Advanced Practice Midwife
DX: N89.8 Other specified noninflammatory disorders of vagina (principal); Z20.2 Contact with and (suspected) exposure to infections with a predominantly sexual mode of transmission; Z32.02 Encounter for pregnancy test, result negative
CPT/HCPCS: 99213

== ENCOUNTER 2025-04-29 06:51 | Outpatient (AMB) | payer OTHER, SELFPAY ==
--- OUTSIDE RECORDS SUMMARY | 2025-04-29 06:54 | XMS_ITS | Patient Health Record ---
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
--- NOTE | 2025-04-29 07:22 | A.OFFPC_ITS ---
Intake Visit Reasons: GI and process steward referrals Allergies No Known Allergies Allergy (Verified 04/29/25 07:25) Medication List - Last Reconciled 04/29/25 by LEXI Neely- hydroxyzine HCl 25 mg PO BID PRN 20 days metronidazole 500 mg PO BID 7 days pantoprazole 20 mg PO DAILY Tobacco use date assessed: 09/02/24 Dental Screening Dental Screen Date: 09/02/24 HPI GI and process steward referrals HPI Details History of Present Illness The patient is a 29-year-old female presenting with excessive vomiting. She reports episodes of vomiting that occur up to 12 hours after eating granular foods such as rice, salads, and pastas, typically in the middle of the night or stretch box tender. She reports feeling nauseous before the emesis, which provides relief, but notes this is a recurrent cycle. She noted blood in her vomit on one occasion but believed it was due to the aggressive nature of the vomiting. In 2020, the patient saw a machine bander and cellophaner helper for similar symptoms, including bilious vomiting, and was diagnosed with esophagitis. Her treatment at that time included a proton-pump inhibitor (PPI), a bile acid binder, and antihistamines. A gastric emptying study performed at that time showed some gastric retention which was slightly less than a previous, mildly abnormal study; however, the final impression of the 4-hour solid food study was normal. Pt is describing onychomycosis symptoms to big toenail/s requesting referral to podiatry. Review of Systems - Gastrointestinal: Reports excessive, d elayed vomiting after eating granular foods, with associated nausea that is relieved by emesis. - She also reports a past episode of hem atemesis. denies any current diarrhea, constipation, fevers, chills, abd pain Plan 1. Nausea And Vomiting The patient reports recurrent, delayed-onset vomiting after consuming granular foods, similar to symptoms experienced in 2020 which led to a diagnosis of esophagitis (endo performed) and a workup for gastroparesis that was ultimately negative. Given the recurrence, a new gastric emptying study will be ordered to re-evaluate. A proton pump inhibitor (PPI) will be prescribed. The patient has been encouraged to follow up with her machine bander and cellophaner helper, and a referral will be placed if necessary. Discussion Notes I discussed with the patient her symptoms of recurrent, delayed vomiting after eating certain foods. We reviewed her past GI workup from 2020, which had included a diagnosis of esophagitis and a gastric emptying study that was found to be normal. I explained that due to the return of her symptoms, further e valuation is warranted. I informed her that I will order a new gastric emptying study and prescribe a PPI. I encouraged her to arrange a follow-up visit with the machine bander and cellophaner helper she has seen in the past, and I will place a referral if needed, though she is an established patient there. Patient Instructions - You will be prescribed a new medicatio n to reduce stomach acid (PPI); please take it as directed. - An order will be placed for a gastric emptying study - Please follow up with your gastroenter ologist (stomach specialist) that you have seen previously for this issue. [facility] Medical History Pelvic pain Early stage of Concern about STD in female without diagnosis Chronic back pain Surgical History H/O esophagogastroduodenoscopy No pertinent past surgical history Family History Father History of back surgery Mother Depression History of back surgery Brother No problems noted. Brother No problems noted. Sister No problems noted. Social History Housing: House Alcohol intake: current Alcohol intake frequency: a few times a week Patient Tobacco Use Status: Never used Tobacco e-Cigarette/Vaping Use: Never Used Current occupational status: employed Gender identity: Female Cognitive needs: No Hearing needs: No Vision needs: No Female Reproductive History Menstrual Age of Menarche: 14 Questionnaire Thrive Questionnaire Date Thrive assessed: 09/02/24 I am a: Patient What is your living situation today?: I have a steady place to live Within the past 12 months, did the food you bought not last and you didn't have the money to get more?: Never true Within the past 12 months, did you worry whether your food would run out before you got money to buy more?: Never true Do you have trouble paying for medicines?: Yes Do you have trouble getting transportation to medical appointments?: No Do you have trouble paying your heating and electricity bill?: No Do you have trouble taking care of your child, family member or friend?: No Do you have trouble with day-to-day activities such as bathing, preparing meals, shopping, managing finances, etc.?: No Are you currently unemployed and looking for a job?: No Are you interested in more education?: No Please select the resources that you would like help with: None Currently or been in a relationship where the following occur: No concerns reported THRIVE Score: 0 NIMA-7 AMB Questionnaire NIMA-7 Date NIMA - 7 assessed: 09/02/24 Source: Developed by Drs. Bal Yeung, Ernestina Iniguez, Cameron Salgado and colleagues, with an educational lizzy from [employer]. Physical exam (Primary Care) Tobacco/Smoking Status: Tobacco use Status Tobacco use date assessed 09/02/24 12/23/24 07:35 Patient Tobacco Use Status Never used Tobacco 12/23/24 07:35 e-Cigarette/Vaping Use Never Used 12/23/24 07:35 Thrive Assessment: Date of Thrive Assessment Date Thrive assessed 09/02/24 12/23/24 07:35 Currently or been in a relationship where the following occur: No concerns reported Coding Level of Care Code Tele Est Pt Level 3 (74030) Diagnoses Vomiting R11.10 Esophagitis K20.90 Onychomycosis B35.1 Assessment & Plan Assessment & Plan (1) Vomiting: Code(s): R11.10 - Vomiting, unspecified Category: Medical (2) Esophagitis: Code(s): K20.90 - Esophagitis, unspecified without bleeding Category: Medical (3) Onychomycosis: Code(s): B35.1 - Tinea unguium Category: Medical Plan . Orders: Orders NM gastric emptying study Today K20.90 - Esophagitis, unspecified without bleeding, R11.10 - Vomiting, unspecified Referrals Gastroenterology Referral K20.90 - Esophagitis, unspecified without bleeding, R11.10 - Vomiting, unspecified Podiatry Referral B35.1 - Tinea unguium Medications: New pantoprazole 20 mg PO DAILY 30 tabs 2RF
== END 2025-04-29 09:18 | disposition home or self-care (01) ==
LOC: HO.HMCC 06:51
PROVIDERS: PCP Nurse Practitioner Family; Visit Provider Nurse Practitioner Family
DX: R11.10 Vomiting, unspecified (principal); K20.90 Esophagitis, unspecified without bleeding; B35.1 Tinea unguium

== ENCOUNTER 2025-05-11 11:02 | Outpatient (REF) | payer OTHER, SELFPAY ==
[2025-05-11 12:22] LABS: Syphilis Screen Nonreactive (Nonreactive)
[2025-05-11 12:23] LABS: HBc Num1 0.59 S/CO (0.00-0.79); HIV Num 1 0.10 S/CO (0.00-0.99); ~HepC Num1 0.21 S/CO (0.00-0.79); ~Hepatitis C Antibody Nonreactive (Nonreactive)
--- OUTSIDE RECORDS SUMMARY | 2025-05-11 13:14 | XMS_ITS | Patient Health Record ---
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) Active confirmed Plan Of Treatment Pending Test Test Name Order Date X ray : Foot, left 3V 07/31/2022 X ray : Foot, right 3V 07/31/2022 X ray : Foot, right 3V 2021 Insurance Providers Payer Name Payer Address Payer Phone Subscriber Number Group Number Insured Name Patient Relationship to Insured Coverage Start Date Coverage End Date [facility] [address] [facility] [place], [place] [address] [phone] [id number] Wes Yeung Self - patient is the insured Medical (General) History Medical History History ICD Code Back pain Anxiety Surgical History Surgery Date(Month/Year) endoscopy
== END 2025-05-11 11:03 | disposition home or self-care (01) ==
LOC: HO.LAB 11:02
PROVIDERS: PCP Nurse Practitioner Family; Visit Provider Advanced Practice Midwife
DX: Z11.4 Encounter for screening for human immunodeficiency virus [HIV] (principal); Z20.6 Contact with and (suspected) exposure to human immunodeficiency virus [HIV]; Z20.2 Contact with and (suspected) exposure to infections with a predominantly sexual mode of transmission
CPT/HCPCS: 36415; 86704; 86780; 86803; 87389

== ENCOUNTER 2025-06-09 14:59 | Outpatient (REF) | payer OTHER, SELFPAY | END 2025-06-09 15:00 | disposition home or self-care (01) | LOC: HO.LNP 14:59 | PROVIDERS: PCP Nurse Practitioner Family; Visit Provider Advanced Practice Midwife | DX: Z01.419 Encounter for gynecological examination (general) (routine) without abnormal findings (principal); Z11.51 Encounter for screening for human papillomavirus (HPV); Z12.39 Encounter for other screening for malignant neoplasm of breast; L68.0 Hirsutism | CPT/HCPCS: 87626; 88175 ==

== ENCOUNTER 2025-06-09 14:59 | Outpatient (AMB) | payer OTHER, SELFPAY ==
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
[2025-06-09 15:06] VITALS: BP 116/68; BMI 26.5
== END 2025-06-09 15:34 | disposition home or self-care (01) ==
LOC: HO.HWSM 14:59
PROVIDERS: PCP Nurse Practitioner Family; Visit Provider Advanced Practice Midwife
DX: Z01.419 Encounter for gynecological examination (general) (routine) without abnormal findings (principal); Z12.4 Encounter for screening for malignant neoplasm of cervix; Z12.39 Encounter for other screening for malignant neoplasm of breast; L68.0 Hirsutism
CPT/HCPCS: 99395; 99459

== ENCOUNTER → 2025-06-30 08:29 | Outpatient (REF) | payer OTHER, SELFPAY ==
--- NOTE | ~2025-06-30 | NM_ITS ---
EXAMINATION: MI RADIONUCLIDE SOLID FOOD GASTRIC EMPTYING 4-HOUR STUDY CLINICAL INFORMATION: K20.90 - Esophagitis, unspecified without bleeding COMPARISON: There are no prior studies available for comparison. TECHNIQUE: A standard meal consisting of 4 oz of Egg Beaters brand tagged with 0.906 mCi Tc-99m Sulfur Colloid, 8 oz water and 1 slice of toast with jelly was administered orally to the patient. Images were obtained using a dual head gamma camera in the anterior and posterior projections over of the stomach immediately post ingestion and at hourly intervals up to 4 hours post ingestion. The anterior and posterior counts at each time interval were averaged using the geometric mean and expressed as percentage of the immediate post ingestion counts. FINDINGS: There is visualization of activity in the stomach immediately post ingestion. As the study progresses, there is clearance of activity from the stomach and visualization of progressively increasing small bowel activity. Retention in the stomach at each time interval was: 1 hour 68% (normal 37%-90%) 2 hours 44% (normal 30%-60%) 3 hours 30% 4 hours 17% (normal 0%-10%) MI/MI gastric emptying study IMPRESSION: Slightly dilated 4-hour solid food gastric emptying study. For solid meal, rapid gastric emptying is less than 30% at 60 minutes. Delayed gastric emptying criteria is more than 60% remaining at 120 minutes or more than 10% at 240 minutes. The 4-hour value is the best discriminator of a normal or abnormal result. Gastric emptying study grading per JNMT Consensus Recommendations in 2008 (https://tech.snmjournals.org/content/36/1/44) Grade 1 (mild retention): 11-20% at 4h Grade 2 (moderate retention): 21-35% at 4h Grade 3 (severe retention): 36-50% at 4h Grade 4 (very severe retention): >50% retention at 4h Electronically signed by: Bal Crandall MD 06/30/2025 01:16 PM [facility]
--- OUTSIDE RECORDS SUMMARY | 2025-06-30 08:32 | XMS_ITS | Patient Health Record ---
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) Active confirmed Plan Of Treatment Pending Test Test Name Order Date X ray : Foot, left 3V 07/31/2022 X ray : Foot, right 3V 07/31/2022 X ray : Foot, right 3V 2021 Insurance Providers Payer Name Payer Address Payer Phone Subscriber Number Group Number Insured Name Patient Relationship to Insured Coverage Start Date Coverage End Date [facility] [address] [facility] [place], [place] [address] [id number] Wes Yeung Self - patient is the insured Medical (General) History Medical History History ICD Code Back pain Anxiety Surgical History Surgery Date(Month/Year) endoscopy
== END ==
LOC: HO.NUCMED 08:29
PROVIDERS: PCP Nurse Practitioner Family; Visit Provider Nurse Practitioner Family
DX: K20.90 Esophagitis, unspecified without bleeding (principal); R11.10 Vomiting, unspecified
CPT/HCPCS: 78264; A9541

== ENCOUNTER → 2025-06-30 08:30 | Outpatient (BNV) | payer OTHER, SELFPAY | PROVIDERS: PCP Nurse Practitioner Family; Visit Provider Radiology Diagnostic Radiology | DX: K20.90 Esophagitis, unspecified without bleeding (principal) | CPT/HCPCS: 78264 ==